=== PATIENT | female | born 1945 | race Caucasian/White ===

== ENCOUNTER 2017-08-04 07:30 | Inpatient (IN) | payer MEDICARE, MEDICAID ==
[~2017-08-04 07:30] MED LIST: Gabapentin 300 MG Cap PO ONE; Gentamicin 40 MG/ML 2 ML Vial ONE; Ketamine 500 MG/5 ML MDV IV SCH; Midazolam 1 MG/ML 2 ML SDV ONE; Povidone-Iodine 10% Soln 118.25 ML Bottle ONE; Propofol 200 MG/20 ML SDV ONE; Ropivacaine 49.25 ML, Ketorolac 30 MG, EPINEPHrine 0.5 MG, cloNIDine 80 MCG, Sodium Chl... INJECT ONE; Scopolamine 1.5 MG Transdermal Patch TOP SCH; ceFAZolin 2 GM in Sodium Chloride 0.9% 50 ML IV ONE; fentaNYL 100 MCG/2 ML SDV ONE
[2017-08-04] MEDS: Lactated Ringers 1,000 ML IV SCH ×2 (08:32→18:10)
[2017-08-04] MEDS ORDERED: Sodium Chloride 0.9% 10 ML ONE (08:59)
[2017-08-04] MEDS ORDERED: ePHEDrine 50 MG/ML SDV ONE (08:59)
[2017-08-04] MEDS: Tranexamic Acid 1,000 MG in Sodium Chloride 0.9% 50 ML IV SCH ×3 (09:00→21:31)
[2017-08-04] MEDS ORDERED: Vancomycin 1 GM SDV ONE (09:06)
[2017-08-04] MEDS ORDERED: Phenylephrine 1% 10 MG/ML SDV ONE (09:16)
[2017-08-04] MEDS ORDERED: Naloxone 0.4 MG/ML SDV IVPUSH PRN (10:26)
[2017-08-04] MEDS ORDERED: Morphine 2 MG/ML Syringe IVPUSH PRN (10:26)
[2017-08-04] MEDS ORDERED: Docusate Sodium 100 MG Cap PO PRN (10:26)
[2017-08-04] MEDS ORDERED: Aluminum Hydroxide/Magnesium Hydroxide/Simethicone Susp 30 ML Cup PO PRN (10:26)
[2017-08-04] MEDS ORDERED: Sennosides 8.6 MG Tab PO PRN (10:26)
[2017-08-04] MEDS ORDERED: Bisacodyl 5 MG Tab PO PRN (10:26)
[2017-08-04] MEDS ORDERED: Zolpidem 5 MG Tab PO PRN (10:26)
[2017-08-04] MEDS ORDERED: diphenhydrAMINE 50 MG/ML SDV IVPUSH PRN (10:26)
[2017-08-04] MEDS ORDERED: Ondansetron 4 MG/2 ML SDV IVPUSH PRN (10:26)
[2017-08-04] MEDS ORDERED: Ketorolac 30 MG/ML SDV IVPUSH SCH (10:30)
--- NOTE | 2017-08-04 10:56 | CR ---
Knee 1V or 2V Lt INDICATION: LEFT TOTAL KNEE FINDINGS: Postoperative changes left total knee arthroplasty. Negative for postoperative purposes.
[2017-08-04] MEDS ORDERED: ceFAZolin 2 GM in Premix Bag 1 BAG IV SCH (11:00)
[2017-08-04] MEDS: Acetaminophen/oxyCODONE 325-5 MG Tab PO PRN ×3 (13:06→23:58)
--- NOTE | 2017-08-04 14:22 | OR ---
DATE OF PROCEDURE: 08/04/2017 PREOPERATIVE DIAGNOSIS: Left knee primary osteoarthritis. POSTOPERATIVE DIAGNOSIS: Left knee primary osteoarthritis. PROCEDURE: Left knee total knee arthroplasty. ACUTE DIALYSIS REGISTERED NURSE: TAMIKA Kurtz. FLUID: Lactated Ringer solution. ANESTHESIA: Spinal plus conscious sedation. ESTIMATED BLOOD LOSS: 50 mL. COMPLICATIONS: None. SPECIMEN: None. DISCHARGE DISPOSITION: Stable to PACU. INDICATIONS: The patient is seen preoperatively in the clinic. She had failed nonoperative treatment. Please see my notes regarding nonoperative treatment. Preoperative imaging confirmed the above-mentioned diagnosis. Risks and benefits of the procedure were explained to the patient. Informed consent was obtained. DETAILS OF PROCEDURE: The patient was seen preoperatively by myself and the Anesthesia staff in the preoperative holding area where the operative site was marked. She was brought to the operative suite by the anesthesia staff where spinal sedation plus conscious sedation was administered. The left lower extremity had a well-padded tourniquet placed. The left lower extremity was then prepped and draped in a sterile manner. Time-out was called identifying the correct patient, correct procedure, the correct site, and antibiotics had begun with appropriate period of time. The left lower extremity was exsanguinated. Tourniquet was raised to 300 mmHg for 36 minutes and let down during cementing. A midline incision was made three fingerbreadths proximal to the patella down to the level of tibial tubercle. A medial parapatellar arthrotomy was then made. Bleeding was controlled with Bovie electrocautery as well as an Aquamantys unit. The medial tibia proximally was exposed using Bovie electrocautery. A full synovectomy was performed using Bovie electrocautery and an Aquamantys unit. The patella was everted. The knee was flexed. Two cuts were made on the patella. This was measured to be a 37. Three holes were then drilled for the trial and the trial patella was then placed. We then used sharp Hohmann to protect the soft tissues and reamed the distal femur and then used an intramedullary guide to make a 9 mm 5 degree valgus cut. We then removed that and then placed our posterior condylar guide measuring a 65. The medial collateral ligament was protected using a zero retractor and lateral collateral ligament was protected using a sharp Hohmann. I then drilled through my guide and then inserted the chamfer block and then made our anterior, posterior, chamfer cuts and removed excess bone using an osteotome. We then used the extramedullary tibial guide for our tibial cut. We used pins to hold this in place, then made our proximal tibia cut. We then removed the guide and then used a laminar emergency preparedness coordinator medially and laterally to remove the medial and lateral meniscus, anterior and posterior cruciate ligament as well as any extra soft tissue and then removed posterior osteophytes using a covered osteotome and then controlled any bleeders with the Aquamantys unit. I then anteriorized the tibia using a blunt Hohmann and used a 75 base plate and then reamed and tamped the proximal tibia and then inserted our femoral trial as well as an 18 mm tibial polyethylene trial. I believe, the knee was lax secondary to soft tissue laxity. We certainly examined the tibia and certainly did not remove more than approximately 5 mm of tibia. This provided good stability in flexion and extension. I then removed all of our components, copiously irrigated with saline and then controlled any extra bleeding with the Aquamantys unit and then I cemented our final implants in place and used an 18 poly in extension while we let the tourniquet down at 36 minutes. I then copiously irrigated with saline and removed any excess cement using neural osteotome and then applied some Betadine, let that sit, irrigated again and then I put a gram of vancomycin powder and the joint was then closed with two #5 Ethibond, a #2 Stratafix, and then #3-0 Stratafix followed by chong. I then put on a sterile dressing. The patient was transferred to hospital bed and taken to the PACU in stable condition. Angel Montes DO /[id number]
[2017-08-04] MEDS: Ketorolac 30 MG/ML SDV IVPUSH SCH ×2 (14:49→22:25)
[2017-08-04] MEDS: [UNRECOGNIZED DRUG - REMARK] TOP SCH (14:53)
[2017-08-04] MEDS: traMADol 50 MG Tab PO PRN (15:42)
[2017-08-04] MEDS ORDERED: Sodium Chloride 0.9% 500 ML IV ONE (15:52)
--- NOTE | 2017-08-04 17:16 | PCM.CONS ---
H&P History of Present Illness - General Date of Service: 08/04/17 Admit Problem/Dx: Admission Diagnosis/Problem Admission Diagnosis/Problem Osteoarthritis Source of Information: Patient, Family, Provider, RN Notes Reviewed History Limitations: Reports: Altered Mental Status (Dementia) - History of Present Illness Initial Comments - Free Text/Narative: Ms. Cotto is a 72-year-old woman who I been asked to see by Dr. Isacc Montes for assistance in postoperative medical management. Ms. Cotto underwent a total left knee arthroplasty earlier today by Dr. Montes. She has done well in the initial postoperative period, does note some pain in the knee as would be expected. She denies any nausea, vomiting, chest pain, or shortness of breath. Left Knee Pain Score (Numeric/FACES): 8 - Related Data Allergies/Adverse Reactions: Allergies Allergy/AdvReac Type Severity Reaction Status Date / Time No Known Allergies Allergy Verified 03/01/15 16:40 Home Medications: Home Meds Alendronate [Fosamax] 1 tab PO WEEKLY 07/14/17 [History] Esomeprazole Magnesium [Nexium] 20 mg PO DAILY 07/14/17 [History] Furosemide 40 mg PO DAILY 07/14/17 [History] Levothyroxine [Sythroid] 100 mcg PO DAILY 07/14/17 [History] Liothyronine Sodium 1 tab PO DAILY 07/14/17 [History] Memantine [Namenda] 1 tab PO DAILY 07/14/17 [History] Metoprolol Tartrate 1 tab PO DAILY 07/14/17 [History] Naproxen 1 tab PO BID 07/14/17 [History] buPROPion HCl [Wellbutrin SR] 150 mg PO BID 07/14/17 [History] Past Medical History HEENT History: Reports: Cataract, Hard of Hearing, Impaired Vision Cardiovascular History: Reports: Hypertension, SOB on Exertion Respiratory History: Reports: SOB 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: Musculoskeletal History: Reports: Back Pain, Chronic, Osteoporosis, Other (See Below) Other Musculoskeletal History: L knee pain Neurological History: Reports: Alzheimers Disease Psychiatric History: Reports: Dementia, Depression Endocrine/Metabolic History: Reports: Hypothyroidism, Obesity/BMI 30+, Osteoporosis Hematologic History: Reports: Anemia - Infectious Disease History Infectious Disease History: Reports: Mumps - Past Surgical History Cardiovascular Surgical History: Reports: None Respiratory Surgical History: Reports: None GI Surgical History: Reports: None Female Surgical History: Reports: None Endocrine Surgical History: Reports: None Neurological Surgical History: Reports: None Musculoskeletal Surgical History: Reports: Other (See Below) Other Musculoskeletal Surgeries/Procedures:: left foot surgery, ulner nerve left arm, nose surgery Oncologic Surgical History: Reports: None Dermatological Surgical History: Reports: None Social & Family History - Family History HEENT: Reports: Cataract Respiratory: Reports: Other (See Below) Psychiatric: Reports: Depression Oncologic: Reports: Breast, Lymphoma - Tobacco Use Smoking Status *Q: Current Some Day Smoker Years of Tobacco use: 50 Packs/Tins Daily: 0.2 Used Tobacco, but Quit: No Month Tobacco Last Used: jul Second Hand Smoke Exposure: No - Caffeine Use Caffeine Use: Reports: Coffee - Recreational Drug Use Recreational Drug Use: Yes Drug Use in Last 12 Months: Yes Recreational Drug Type: Reports: Marijuana/Hashish Recreational Drug Use Frequency: Monthly Recreational Drug Last Use: jul H&P Review of Systems - Review of Systems: Review Of Systems: Unable To Obtain General: Reports: ROS unobtainable (Dementia) Exam - Exam Exam: See Below - Vital Signs Vital Signs: Last Vital Signs Temp 97.8 F 08/04/17 14:40 Pulse 61 08/04/17 14:40 Resp 18 08/04/17 14:40 BP 88/71 L 08/04/17 14:40 Pulse Ox 92 L 08/04/17 14:40 Weight: 219 lb - Exam Quality Assessment: DVT Prophylaxis General: Alert, Cooperative, Mild Distress Neck: Supple, Trachea Midline, +2 Carotid Pulse wo Bruit Lungs: Clear to Auscultation, Normal Respiratory Effort Cardiovascular: Regular Rate, Regular Rhythm, Normal S1, Normal S2. No: Systolic Murmur, Diastolic Murmur GI/Abdominal Exam: Normal Bowel Sounds, Soft, Non-Tender, No Distention Skin: Warm, Dry, Intact Neuro Extensive - Mental Status: Alert, Memory Loss-Remote Events, Memory Loss- Recent Events. No: Memory Intact - Patient Data Lab Results Last 24 hrs: Laboratory Results - last 24 hr 08/04/17 Range/Units 08:10 Blood Type A NEGATIVE Gel Antibody Screen Negative Consult PN Assessment/Plan Procedures: Procedures BLOOD TYPING SEROLOGIC ABO (07/16/17) BLOOD TYPING SEROLOGIC RH(D) (07/16/17) CHEST X-RAY 2VW FRONTAL&LATL (03/21/15) COMPLETE CBC AUTOMATED (07/16/17) COMPREHEN METABOLIC PANEL (07/16/17) CULTURE OTHR SPECIMN AEROBIC (07/16/17) ELECTROCARDIOGRAM TRACING (07/16/17) RBC ANTIBODY SCREEN (07/16/17) ROUTINE VENIPUNCTURE (07/16/17) X-RAY EXAM KNEE 4 OR MORE (07/14/17) X-RAY EXAM OF KNEE 1 OR 2 (03/01/15) Problem List Initiated/Reviewed/Updated: Yes My Orders Last 24 Hours: My Active Orders 08/04/17 21:00 Melatonin 9 mg PO BEDTIME buPROPion [Wellbutrin SR] 150 mg PO BID 08/05/17 07:30 Levothyroxine [Synthroid] 100 mcg PO DAILY@0730 Liothyronine [Cytomel] 25 mcg PO DAILY@0730 Pantoprazole [ProTONIX] 40 mg PO ACBREAKFAST 08/05/17 09:00 Memantine [Namenda] 10 mg PO DAILY Metoprolol Tartrate [Lopressor] 25 mg PO DAILY Plan: ASSESSMENT AND RECOMMENDATIONS STATUS POST LEFT TOTAL KNEE ARTHROPLASTY-stable during the immediate postoperative period -Postoperative cares per Dr. Montes DEMENTIA -Continue outpatient medical therapy -Melatonin 9 mg by mouth daily at bedtime while hospitalized HYPERTENSION -Continue outpatient medical regimen, adjust as needed during hospitalization Requesting Provider: HUMPHREY Date Consult Requested: 08/04/17 Reason for Consult: Postoperative medical management Patient History Reviewed: Yes
[2017-08-04] MEDS: ceFAZolin 2 GM in Sodium Chloride 0.9% 50 ML IV SCH ×2 (18:24→23:09)
[2017-08-04] MEDS: Diazepam 5 MG Tab PO PRN (20:01)
[2017-08-04] MEDS: Melatonin 3 MG Tab PO SCH (22:26)
[2017-08-04] MEDS: buPROPion 150 MG Tab.SR PO SCH (22:26)
[2017-08-04] MEDS ORDERED: Lactated Ringers 1,000 ML IV SCH (23:30)
[2017-08-05] MEDS: Diazepam 5 MG Tab PO PRN (02:53)
[2017-08-05] MEDS: Lactated Ringers 1,000 ML IV SCH ×2 (02:54→19:39)
[2017-08-05] MEDS: Ketorolac 30 MG/ML SDV IVPUSH SCH (05:44)
[2017-08-05] MEDS: Acetaminophen/oxyCODONE 325-5 MG Tab PO PRN ×4 (05:48→20:12)
[2017-08-05] MEDS: Liothyronine 5 MCG Tab PO SCH (07:30)
[2017-08-05] MEDS: Levothyroxine 100 MCG Tab PO SCH (07:30)
[2017-08-05] MEDS: Pantoprazole 40 MG Tab.CR PO SCH (07:31)
[2017-08-05] MEDS: ceFAZolin 2 GM in Sodium Chloride 0.9% 50 ML IV SCH (08:10)
[2017-08-05] MEDS: traMADol 50 MG Tab PO PRN ×2 (08:15→14:20)
[2017-08-05] MEDS ORDERED: Aspirin 325 MG Tab.EC PO SCH (09:00)
[2017-08-05] MEDS: buPROPion 150 MG Tab.SR PO SCH ×2 (09:42→20:12)
[2017-08-05] MEDS: Memantine 10 MG Tab PO SCH (09:42)
[2017-08-05] MEDS: Sodium Chloride 0.9% 10 ML Syringe FLUSH SCH (09:45)
[2017-08-05] MEDS: Metoprolol Tartrate 25 MG Tab PO SCH (09:46)
[2017-08-05] MEDS: [UNRECOGNIZED DRUG - REMARK] TOP SCH (09:48)
[2017-08-05] MEDS: Aspirin 325 MG Tab.EC PO SCH (10:21)
--- NOTE | 2017-08-05 12:13 | PCM.PN ---
- General Info Date of Service: 08/05/17 Functional Status: Reports: Ambulating, Other - Review of Systems General: Reports: No Symptoms HEENT: Reports: No Symptoms Pulmonary: Reports: No Symptoms Cardiovascular: Reports: No Symptoms Gastrointestinal: Reports: No Symptoms Genitourinary: Reports: No Symptoms Musculoskeletal: Reports: Joint Pain Skin: Reports: No Symptoms Neurological: Reports: No Symptoms Psychiatric: Reports: No Symptoms - Patient Data Vitals - Most Recent: Last Vital Signs Temp 96.7 F 08/05/17 07:34 Pulse 69 08/05/17 09:46 Resp 20 08/05/17 07:34 BP 93/57 L 08/05/17 07:34 Pulse Ox 95 08/05/17 07:34 Weight - Most Recent: 219 lb I&O - Last 24 Hours: Intake & Output 08/04/17 08/05/17 08/05/17 22:59 06:59 14:59 Intake Total 1622 2347 400 Output Total 140 49 350 Balance 1482 2298 50 Lab Results Last 24 Hours: Laboratory Results - last 24 hr 08/05/17 08/05/17 Range/Units 05:49 05:49 WBC 9.7 (4.5-11.0) K/uL RBC 3.28 L (3.30-5.50) M/uL Hgb 10.2 L D (12.0-15.0) g/dL Hct 32.6 L (36.0-48.0) % MCV 99 H (80-98) fL MCH 31 (27-31) pg MCHC 31 L (32-36) % Plt Count 167 (150-400) K/uL Neut % (Auto) 68 H (36-66) % Lymph % (Auto) 18 L (24-44) % [place] % (Auto) 13 H (2-6) % Eos % (Auto) 1 L (2-4) % Baso % (Auto) 0 (0-1) % Sodium 141 (140-148) mmol/L Potassium 4.0 (3.6-5.2) mmol/L Chloride 108 (100-108) mmol/L Carbon Dioxide 29 (21-32) mmol/L Anion Gap 4.0 L (5.0-14.0) mmol/L BUN 23 H (7-18) mg/dL Creatinine 0.7 (0.6-1.0) mg/dL Est Cr Clr Drug Dosing 60.98 mL/min Estimated GFR (MDRD) > 60 (>60) Glucose 134 H (74-106) mg/dL Calcium 8.1 L (8.5-10.1) mg/dL Total Bilirubin 0.1 L (0.2-1.0) mg/dL AST 18 (15-37) U/L ALT 23 (12-78) U/L Alkaline Phosphatase 59 (46-116) U/L Total Protein 5.7 L (6.4-8.2) g/dL Albumin 2.6 L (3.4-5.0) g/dL Globulin 3.1 (2.3-3.5) g/dL Albumin/Globulin Ratio 0.8 L (1.2-2.2) Med Orders - Current: Current Medications Al Hydroxide/Mg Hydroxide (Mag-Al Plus) 30 ml PO Q4H PRN PRN Reason: Constipation Aspirin (Ecotrin) 325 mg PO DAILY [facility] Last Admin: 08/05/17 10:21 Dose: 325 mg Bisacodyl (Dulcolax) 10 mg PO DAILY PRN PRN Reason: Constipation Bupropion HCl (Wellbutrin Sr) 150 mg PO BID [facility] Last Admin: 08/05/17 09:42 Dose: 150 mg Diazepam (Valium.) 5 mg PO Q6H PRN PRN Reason: Spasms Last Admin: 08/05/17 02:53 Dose: 5 mg Diphenhydramine HCl (Benadryl) 25 mg IVPUSH Q4H PRN PRN Reason: Itching Docusate Sodium (Colace) 100 mg PO BID PRN PRN Reason: Constipation Lactated Ringer's (Ringers, Lactated) 1,000 mls @ 125 mls/hr IV ASDIRECTED [facility] Last Admin: 08/05/17 02:54 Dose: 125 mls/hr Levothyroxine Sodium (Synthroid) 100 mcg PO DAILY@729 [facility] Last Admin: 08/05/17 07:30 Dose: 100 mcg Liothyronine Sodium (Cytomel) 25 mcg PO DAILY@729 [facility] Last Admin: 08/05/17 07:30 Dose: 25 mcg Magnesium Hydroxide (Milk Of Magnesia) 30 ml PO BID PRN PRN Reason: Constipation Melatonin (Melatonin) 9 mg PO BEDTIME [facility] Last Admin: 08/04/17 22:26 Dose: 9 mg Memantine (Namenda) 10 mg PO DAILY [facility] Last Admin: 08/05/17 09:42 Dose: 10 mg Metoprolol Tartrate (Lopressor) 25 mg PO DAILY [facility] Last Admin: 08/05/17 09:46 Dose: Not Given Morphine Sulfate (Morphine) 2 mg IVPUSH Q2H PRN PRN Reason: Pain Last Admin: 08/05/17 00:43 Dose: 2 mg Naloxone HCl (Narcan) 0.1 mg IVPUSH ONETIME PRN PRN Reason: Oversedation Scopolamine Patch (Chek) 1 each TOP DAILY [facility] Last Admin: 08/05/17 09:48 Dose: Not Given Ondansetron HCl (Zofran) 8 mg IVPUSH Q4H PRN PRN Reason: Nausea/Vomiting Oxycodone/Acetaminophen (Percocet 325-5 Mg) 2 tab PO Q4H PRN PRN Reason: Pain Last Admin: 08/05/17 11:23 Dose: 2 tab Pantoprazole Sodium (Protonix) 40 mg PO ACBREAKFAST [facility] Last Admin: 08/05/17 07:31 Dose: 40 mg Scopolamine (Transderm-Scop) 1.5 mg TOP Q72H [facility] Stop: 08/07/17 06:00 Last Admin: 08/04/17 08:19 Dose: 1.5 mg Senna (Senna) 8.6 mg PO BID PRN PRN Reason: Constipation Sodium Chloride (Saline Flush) 10 ml FLUSH DAILY [facility] Last Admin: 08/05/17 09:45 Dose: Not Given Tramadol HCl (Ultram) 100 mg PO Q6H PRN PRN Reason: Pain Last Admin: 08/05/17 08:15 Dose: 100 mg Zolpidem Tartrate (Ambien) 5 mg PO BEDTIME PRN PRN Reason: Sleep Discontinued Medications Ropivacaine 49.25 ml/Ketorolac Tromethamine 30 mg/Epinephrine HCl 0.5 mg/ Clonidine HCl 80 mcg/ Sodium Chloride 48.45 ml 0 ml INJECT ONETIME ONE Stop: 08/04/17 07:31 Last Admin: 08/04/17 10:03 Dose: 100 ml Ephedrine Sulfate (Ephedrine Sulfate) Confirm Administered Dose 50 mg .ROUTE .STK-MED ONE Stop: 08/04/17 09:00 Fentanyl (Sublimaze) Confirm Administered Dose 100 mcg .ROUTE .STK-MED ONE Stop: 08/04/17 07:21 Gabapentin (Neurontin) 300 mg PO ONETIME ONE Stop: 08/04/17 06:46 Last Admin: 08/04/17 08:16 Dose: 300 mg Gentamicin Sulfate (Gentamicin) Confirm Administered Dose 240 mg .ROUTE .STK- MED ONE Stop: 08/04/17 07:13 Last Admin: 08/04/17 09:07 Dose: 240 mg Cefazolin Sodium 2 gm/ Sodium (Chloride) 50 mls @ 100 mls/hr IV ONETIME ONE Stop: 08/04/17 07:59 Last Admin: 08/04/17 08:35 Dose: 100 mls/hr Lactated Ringer's (Ringers, Lactated) 1,000 mls @ 0 mls/hr IV ASDIRECTED [facility] PRN Reason: KVO Last Admin: 08/04/17 18:10 Dose: 30 mls/hr Tranexamic Acid 1,000 mg/ (Sodium Chloride) 60 mls @ 240 mls/hr IV Q3H [facility] Stop: 08/04/17 10:44 Last Admin: 08/04/17 21:31 Dose: Not Given Sodium Chloride (Normal Saline) Confirm Administered Dose 10 mls @ as directed .ROUTE .STK-MED ONE Stop: 08/04/17 09:00 Cefazolin Sodium 2 gm/ Sodium (Chloride) 50 mls @ 100 mls/hr IV Q8H [facility] Stop: 08/05/17 08:29 Last Admin: 08/05/17 08:10 Dose: 100 mls/hr Sodium Chloride (Normal Saline) 500 mls @ 500 mls/hr IV .BOLUS ONE Stop: 08/04/17 16:51 Last Admin: 08/04/17 16:06 Dose: 500 mls/hr Lactated Ringer's (Ringers, Lactated) 1,000 mls @ 250 mls/hr IV ASDIRECTED [facility] Stop: 08/05/17 03:30 Last Admin: 08/04/17 23:53 Dose: 250 mls/hr Ketorolac Tromethamine (Toradol) 15 mg IVPUSH Q8H [facility] Stop: 08/05/17 05:01 Last Admin: 08/05/17 05:44 Dose: 15 mg Midazolam HCl (Versed 1 Mg/Ml) Confirm Administered Dose 2 mg .ROUTE .STK-MED ONE Stop: 08/04/17 07:21 Phenylephrine HCl (Ray-Synephrine) Confirm Administered Dose 10 mg .ROUTE .STK- MED ONE Stop: 08/04/17 09:17 Povidone Iodine (Betadine 10% Soln) Confirm Administered Dose 1 ml .ROUTE .STK- MED ONE Stop: 08/04/17 07:14 Last Admin: 08/04/17 09:45 Dose: 10 ml Propofol (Diprivan 20 Ml) Confirm Administered Dose 200 mg .ROUTE .STK-MED ONE Stop: 08/04/17 07:21 Vancomycin HCl (Vancomycin) Confirm Administered Dose 1 gm .ROUTE .STK-MED ONE Stop: 08/04/17 09:07 Last Admin: 08/04/17 09:30 Dose: 1 gm - Exam General: Alert, Oriented HEENT: Pupils Reactive Extremities: Joint Swelling, Leg Pain, Limited Range of Motion Peripheral Pulses: 2+: Dorsalis Pedis (L) Skin: Warm, Dry, Intact Wound/Incisions: Healing Well, Drainage Neurological: No New Focal Deficit Psy/Mental Status: Alert, Normal Affect Physical Findings Comments:: ROM 7-96. pain moderately controlled but getting pain medication appropriately. will most likely d/c to snf - Problem List & Annotations (1) Primary osteoarthritis of left knee SNOMED Code(s): 566333216, 321773845 Code(s): M17.12 - UNILATERAL PRIMARY OSTEOARTHRITIS, LEFT KNEE Status: Acute Current Visit: Yes (2) Status post total left knee replacement SNOMED Code(s): 6005969239063 Code(s): Z96.652 - PRESENCE OF LEFT ARTIFICIAL KNEE JOINT Status: Acute Current Visit: Yes - Problem List Review Problem List Initiated/Reviewed/Updated: Yes - Plan Plan:: pt/ot, pain control, dvt prophylaxis
--- NOTE | 2017-08-05 17:59 | PCM.CONSN ---
- General Info Date of Service: 08/05/17 Functional Status: Reports: Pain Controlled, Tolerating Diet - Review of Systems General: Denies: Fever, Chills Pulmonary: Reports: No Symptoms Cardiovascular: Reports: No Symptoms Gastrointestinal: Reports: No Symptoms Musculoskeletal: Reports: Joint Pain Systems Review Comment:: This patient has done well since surgery yesterday, vitals have been stable and she has remained afebrile. Pain control is been adequate, thus far she has done well with ambulation and transfers. - Patient Data Vitals - Most Recent: Last Vital Signs Temp 99.4 F 08/05/17 15:28 Pulse 81 08/05/17 15:28 Resp 16 08/05/17 15:28 BP 103/56 L 08/05/17 15:28 Pulse Ox 93 L 08/05/17 15:28 Weight - Most Recent: 219 lb I&O - Last 24 Hours: Intake & Output 08/05/17 08/05/17 08/05/17 06:59 14:59 22:59 Intake Total 2347 400 Output Total 49 350 400 Balance 2298 50 -400 Lab Results Last 24 Hours: Laboratory Results - last 24 hr 08/05/17 08/05/17 Range/Units 05:49 05:49 WBC 9.7 (4.5-11.0) K/uL RBC 3.28 L (3.30-5.50) M/uL Hgb 10.2 L D (12.0-15.0) g/dL Hct 32.6 L (36.0-48.0) % MCV 99 H (80-98) fL MCH 31 (27-31) pg MCHC 31 L (32-36) % Plt Count 167 (150-400) K/uL Neut % (Auto) 68 H (36-66) % Lymph % (Auto) 18 L (24-44) % [place] % (Auto) 13 H (2-6) % Eos % (Auto) 1 L (2-4) % Baso % (Auto) 0 (0-1) % Sodium 141 (140-148) mmol/L Potassium 4.0 (3.6-5.2) mmol/L Chloride 108 (100-108) mmol/L Carbon Dioxide 29 (21-32) mmol/L Anion Gap 4.0 L (5.0-14.0) mmol/L BUN 23 H (7-18) mg/dL Creatinine 0.7 (0.6-1.0) mg/dL Est Cr Clr Drug Dosing 60.98 mL/min Estimated GFR (MDRD) > 60 (>60) Glucose 134 H (74-106) mg/dL Calcium 8.1 L (8.5-10.1) mg/dL Total Bilirubin 0.1 L (0.2-1.0) mg/dL AST 18 (15-37) U/L ALT 23 (12-78) U/L Alkaline Phosphatase 59 (46-116) U/L Total Protein 5.7 L (6.4-8.2) g/dL Albumin 2.6 L (3.4-5.0) g/dL Globulin 3.1 (2.3-3.5) g/dL Albumin/Globulin Ratio 0.8 L (1.2-2.2) Med Orders - Current: Current Medications Al Hydroxide/Mg Hydroxide (Mag-Al Plus) 30 ml PO Q4H PRN PRN Reason: Constipation Aspirin (Ecotrin) 325 mg PO DAILY [facility] Last Admin: 08/05/17 10:21 Dose: 325 mg Bisacodyl (Dulcolax) 10 mg PO DAILY PRN PRN Reason: Constipation Bupropion HCl (Wellbutrin Sr) 150 mg PO BID [facility] Last Admin: 08/05/17 09:42 Dose: 150 mg Diazepam (Valium.) 5 mg PO Q6H PRN PRN Reason: Spasms Last Admin: 08/05/17 02:53 Dose: 5 mg Diphenhydramine HCl (Benadryl) 25 mg IVPUSH Q4H PRN PRN Reason: Itching Docusate Sodium (Colace) 100 mg PO BID PRN PRN Reason: Constipation Lactated Ringer's (Ringers, Lactated) 1,000 mls @ 125 mls/hr IV ASDIRECTED [facility] Last Admin: 08/05/17 02:54 Dose: 125 mls/hr Levothyroxine Sodium (Synthroid) 100 mcg PO DAILY@729 [facility] Last Admin: 08/05/17 07:30 Dose: 100 mcg Liothyronine Sodium (Cytomel) 25 mcg PO DAILY@30 [facility] Last Admin: 08/05/17 07:30 Dose: 25 mcg Magnesium Hydroxide (Milk Of Magnesia) 30 ml PO BID PRN PRN Reason: Constipation Melatonin (Melatonin) 9 mg PO BEDTIME [facility] Last Admin: 08/04/17 22:26 Dose: 9 mg Memantine (Namenda) 10 mg PO DAILY [facility] Last Admin: 08/05/17 09:42 Dose: 10 mg Metoprolol Tartrate (Lopressor) 25 mg PO DAILY [facility] Last Admin: 08/05/17 09:46 Dose: Not Given Morphine Sulfate (Morphine) 2 mg IVPUSH Q2H PRN PRN Reason: Pain Last Admin: 08/05/17 00:43 Dose: 2 mg Naloxone HCl (Narcan) 0.1 mg IVPUSH ONETIME PRN PRN Reason: Oversedation Scopolamine Patch (Chek) 1 each TOP DAILY [facility] Last Admin: 08/05/17 09:48 Dose: Not Given Ondansetron HCl (Zofran) 8 mg IVPUSH Q4H PRN PRN Reason: Nausea/Vomiting Oxycodone/Acetaminophen (Percocet 325-5 Mg) 2 tab PO Q4H PRN PRN Reason: Pain Last Admin: 08/05/17 15:59 Dose: 2 tab Pantoprazole Sodium (Protonix) 40 mg PO ACBREAKFAST [facility] Last Admin: 08/05/17 07:31 Dose: 40 mg Scopolamine (Transderm-Scop) 1.5 mg TOP Q72H [facility] Stop: 08/07/17 06:00 Last Admin: 08/04/17 08:19 Dose: 1.5 mg Senna (Senna) 8.6 mg PO BID PRN PRN Reason: Constipation Sodium Chloride (Saline Flush) 10 ml FLUSH DAILY [facility] Last Admin: 08/05/17 09:45 Dose: Not Given Tramadol HCl (Ultram) 100 mg PO Q6H PRN PRN Reason: Pain Last Admin: 08/05/17 14:20 Dose: 100 mg Zolpidem Tartrate (Ambien) 5 mg PO BEDTIME PRN PRN Reason: Sleep Discontinued Medications Ropivacaine 49.25 ml/Ketorolac Tromethamine 30 mg/Epinephrine HCl 0.5 mg/ Clonidine HCl 80 mcg/ Sodium Chloride 48.45 ml 0 ml INJECT ONETIME ONE Stop: 08/04/17 07:31 Last Admin: 08/04/17 10:03 Dose: 100 ml Ephedrine Sulfate (Ephedrine Sulfate) Confirm Administered Dose 50 mg .ROUTE .STK-MED ONE Stop: 08/04/17 09:00 Fentanyl (Sublimaze) Confirm Administered Dose 100 mcg .ROUTE .STK-MED ONE Stop: 08/04/17 07:21 Gabapentin (Neurontin) 300 mg PO ONETIME ONE Stop: 08/04/17 06:46 Last Admin: 08/04/17 08:16 Dose: 300 mg Gentamicin Sulfate (Gentamicin) Confirm Administered Dose 240 mg .ROUTE .STK- MED ONE Stop: 08/04/17 07:13 Last Admin: 08/04/17 09:07 Dose: 240 mg Cefazolin Sodium 2 gm/ Sodium (Chloride) 50 mls @ 100 mls/hr IV ONETIME ONE Stop: 08/04/17 07:59 Last Admin: 08/04/17 08:35 Dose: 100 mls/hr Lactated Ringer's (Ringers, Lactated) 1,000 mls @ 0 mls/hr IV ASDIRECTED [facility] PRN Reason: KVO Last Admin: 08/04/17 18:10 Dose: 30 mls/hr Tranexamic Acid 1,000 mg/ (Sodium Chloride) 60 mls @ 240 mls/hr IV Q3H [facility] Stop: 08/04/17 10:44 Last Admin: 08/04/17 21:31 Dose: Not Given Sodium Chloride (Normal Saline) Confirm Administered Dose 10 mls @ as directed .ROUTE .STK-MED ONE Stop: 08/04/17 09:00 Cefazolin Sodium 2 gm/ Sodium (Chloride) 50 mls @ 100 mls/hr IV Q8H [facility] Stop: 08/05/17 08:29 Last Admin: 08/05/17 08:10 Dose: 100 mls/hr Sodium Chloride (Normal Saline) 500 mls @ 500 mls/hr IV .BOLUS ONE Stop: 08/04/17 16:51 Last Admin: 08/04/17 16:06 Dose: 500 mls/hr Lactated Ringer's (Ringers, Lactated) 1,000 mls @ 250 mls/hr IV ASDIRECTED [facility] Stop: 08/05/17 03:30 Last Admin: 08/04/17 23:53 Dose: 250 mls/hr Ketorolac Tromethamine (Toradol) 15 mg IVPUSH Q8H [facility] Stop: 08/05/17 05:01 Last Admin: 08/05/17 05:44 Dose: 15 mg Midazolam HCl (Versed 1 Mg/Ml) Confirm Administered Dose 2 mg .ROUTE .STK-MED ONE Stop: 08/04/17 07:21 Phenylephrine HCl (Ray-Synephrine) Confirm Administered Dose 10 mg .ROUTE .STK- MED ONE Stop: 08/04/17 09:17 Povidone Iodine (Betadine 10% Soln) Confirm Administered Dose 1 ml .ROUTE .STK- MED ONE Stop: 08/04/17 07:14 Last Admin: 08/04/17 09:45 Dose: 10 ml Propofol (Diprivan 20 Ml) Confirm Administered Dose 200 mg .ROUTE .STK-MED ONE Stop: 08/04/17 07:21 Vancomycin HCl (Vancomycin) Confirm Administered Dose 1 gm .ROUTE .STK-MED ONE Stop: 08/04/17 09:07 Last Admin: 08/04/17 09:30 Dose: 1 gm - Exam General: Alert, Oriented, Cooperative, Mild Distress Lungs: Clear to Auscultation, Normal Respiratory Effort Cardiovascular: Regular Rate, Regular Rhythm, No Murmurs GI/Abdominal Exam: Normal Bowel Sounds, Soft, Non-Tender, No Organomegaly, No Distention Consult PN Assessment/Plan Procedures: Procedures BLOOD TYPING SEROLOGIC ABO (07/16/17) BLOOD TYPING SEROLOGIC RH(D) (07/16/17) CHEST X-RAY 2VW FRONTAL&LATL (03/21/15) COMPLETE CBC AUTOMATED (07/16/17) COMPREHEN METABOLIC PANEL (07/16/17) CULTURE OTHR SPECIMN AEROBIC (07/16/17) ELECTROCARDIOGRAM TRACING (07/16/17) RBC ANTIBODY SCREEN (07/16/17) ROUTINE VENIPUNCTURE (07/16/17) X-RAY EXAM KNEE 4 OR MORE (07/14/17) X-RAY EXAM OF KNEE 1 OR 2 (03/01/15) Problem List Initiated/Reviewed/Updated: Yes My Orders Last 24 Hours: My Active Orders 08/04/17 19:45 Lactated Ringers [Ringers, Lactated] 1,000 ml IV ASDIRECTED 08/04/17 21:00 Melatonin 9 mg PO BEDTIME buPROPion [Wellbutrin SR] 150 mg PO BID 08/05/17 07:30 Levothyroxine [Synthroid] 100 mcg PO DAILY@30 Liothyronine [Cytomel] 25 mcg PO DAILY@729 Pantoprazole [ProTONIX] 40 mg PO ACBREAKFAST 08/05/17 09:00 Memantine [Namenda] 10 mg PO DAILY Metoprolol Tartrate [Lopressor] 25 mg PO DAILY Plan: ASSESSMENT AND RECOMMENDATIONS STATUS POST LEFT TOTAL KNEE ARTHROPLASTY-stable since surgery yesterday -Postoperative cares per Dr. Montes DEMENTIA -Continue outpatient medical therapy -Melatonin 9 mg by mouth daily at bedtime while hospitalized HYPERTENSION -Continue outpatient medical regimen, adjust as needed during hospitalization
[2017-08-05] MEDS: Melatonin 3 MG Tab PO SCH (20:12)
[2017-08-05] MEDS ORDERED: Lactated Ringers 500 ML IV ONE (21:15)
[2017-08-05] MEDS ORDERED: Gabapentin 100 MG Cap PO SCH (21:15)
[2017-08-05] MEDS ORDERED: Lactated Ringers 1,000 ML IV SCH (23:30)
[2017-08-06] MEDS: traMADol 50 MG Tab PO PRN ×3 (00:02→13:53)
[2017-08-06] MEDS: Diazepam 5 MG Tab PO PRN ×3 (00:02→13:52)
[2017-08-06] MEDS: Lactated Ringers 1,000 ML IV SCH (03:39)
[2017-08-06] MEDS: Acetaminophen/oxyCODONE 325-5 MG Tab PO PRN ×4 (03:41→20:04)
[2017-08-06] MEDS: Pantoprazole 40 MG Tab.CR PO SCH (07:36)
[2017-08-06] MEDS: Levothyroxine 100 MCG Tab PO SCH (07:36)
[2017-08-06] MEDS: Liothyronine 5 MCG Tab PO SCH (07:36)
[2017-08-06] MEDS: Magnesium Hydroxide 400 MG/5 ML Susp 30 ML Cup PO PRN ×2 (07:52→20:03)
[2017-08-06] MEDS: Aspirin 325 MG Tab.EC PO SCH (08:12)
[2017-08-06] MEDS: buPROPion 150 MG Tab.SR PO SCH ×2 (08:12→20:03)
[2017-08-06] MEDS: Metoprolol Tartrate 25 MG Tab PO SCH (08:12)
[2017-08-06] MEDS: Memantine 10 MG Tab PO SCH (08:13)
[2017-08-06] MEDS: [UNRECOGNIZED DRUG - REMARK] TOP SCH (08:13)
[2017-08-06] MEDS: Sodium Chloride 0.9% 10 ML Syringe FLUSH SCH (08:14)
--- NOTE | 2017-08-06 09:09 | PCM.PN ---
- General Info Date of Service: 08/06/17 Functional Status: Reports: Pain Controlled, Tolerating Diet, Ambulating, Urinating - Patient Data Vitals - Most Recent: Last Vital Signs Temp 37.2 C 08/06/17 07:43 Pulse 88 08/06/17 08:12 Resp 18 08/06/17 07:43 BP 129/74 08/06/17 08:12 Pulse Ox 95 08/06/17 07:43 Weight - Most Recent: 219 lb I&O - Last 24 Hours: Intake & Output 08/05/17 08/06/17 08/06/17 22:59 06:59 14:59 Intake Total 2220 1548 438 Output Total 1075 1350 Balance 1145 198 438 Lab Results Last 24 Hours: Laboratory Results - last 24 hr 08/06/17 08/06/17 Range/Units 05:20 05:20 WBC 9.5 (4.5-11.0) K/uL RBC 3.08 L (3.30-5.50) M/uL Hgb 9.7 L (12.0-15.0) g/dL Hct 30.2 L (36.0-48.0) % MCV 98 (80-98) fL MCH 32 H (27-31) pg MCHC 32 (32-36) % Plt Count 157 (150-400) K/uL Neut % (Auto) 80 H (36-66) % Lymph % (Auto) 7 L (24-44) % [place] % (Auto) 13 H (2-6) % Eos % (Auto) 0 L (2-4) % Baso % (Auto) 0 (0-1) % Sodium 138 L (140-148) mmol/L Potassium 4.0 (3.6-5.2) mmol/L Chloride 104 (100-108) mmol/L Carbon Dioxide 28 (21-32) mmol/L Anion Gap 10.0 (5.0-14.0) mmol/L BUN 13 (7-18) mg/dL Creatinine 0.6 (0.6-1.0) mg/dL Est Cr Clr Drug Dosing 71.14 mL/min Estimated GFR (MDRD) > 60 (>60) Glucose 146 H (74-106) mg/dL Calcium 8.1 L (8.5-10.1) mg/dL Total Bilirubin 0.4 D (0.2-1.0) mg/dL AST 19 (15-37) U/L ALT 16 (12-78) U/L Alkaline Phosphatase 54 (46-116) U/L Total Protein 6.0 L (6.4-8.2) g/dL Albumin 2.4 L (3.4-5.0) g/dL Globulin 3.6 H (2.3-3.5) g/dL Albumin/Globulin Ratio 0.7 L (1.2-2.2) Med Orders - Current: Current Medications Al Hydroxide/Mg Hydroxide (Mag-Al Plus) 30 ml PO Q4H PRN PRN Reason: Constipation Aspirin (Ecotrin) 325 mg PO DAILY [facility] Last Admin: 08/06/17 08:12 Dose: 325 mg Bisacodyl (Dulcolax) 10 mg PO DAILY PRN PRN Reason: Constipation Bupropion HCl (Wellbutrin Sr) 150 mg PO BID [facility] Last Admin: 08/06/17 08:12 Dose: 150 mg Diazepam (Valium.) 5 mg PO Q6H PRN PRN Reason: Spasms Last Admin: 08/06/17 07:52 Dose: 5 mg Diphenhydramine HCl (Benadryl) 25 mg IVPUSH Q4H PRN PRN Reason: Itching Docusate Sodium (Colace) 100 mg PO BID PRN PRN Reason: Constipation Lactated Ringer's (Ringers, Lactated) 1,000 mls @ 125 mls/hr IV ASDIRECTED [facility] Last Admin: 08/06/17 03:39 Dose: 125 mls/hr Levothyroxine Sodium (Synthroid) 100 mcg PO DAILY@30 [facility] Last Admin: 08/06/17 07:36 Dose: 100 mcg Liothyronine Sodium (Cytomel) 25 mcg PO DAILY@0730 [facility] Last Admin: 08/06/17 07:36 Dose: 25 mcg Magnesium Hydroxide (Milk Of Magnesia) 30 ml PO BID PRN PRN Reason: Constipation Last Admin: 08/06/17 07:52 Dose: 30 ml Melatonin (Melatonin) 9 mg PO BEDTIME [facility] Last Admin: 08/05/17 20:12 Dose: 9 mg Memantine (Namenda) 10 mg PO DAILY [facility] Last Admin: 08/06/17 08:13 Dose: 10 mg Metoprolol Tartrate (Lopressor) 25 mg PO DAILY [facility] Last Admin: 08/06/17 08:12 Dose: 25 mg Morphine Sulfate (Morphine) 2 mg IVPUSH Q2H PRN PRN Reason: Pain Last Admin: 08/05/17 00:43 Dose: 2 mg Naloxone HCl (Narcan) 0.1 mg IVPUSH ONETIME PRN PRN Reason: Oversedation Scopolamine Patch (Chek) 1 each TOP DAILY [facility] Last Admin: 08/06/17 08:13 Dose: Not Given Ondansetron HCl (Zofran) 8 mg IVPUSH Q4H PRN PRN Reason: Nausea/Vomiting Oxycodone/Acetaminophen (Percocet 325-5 Mg) 2 tab PO Q4H PRN PRN Reason: Pain Last Admin: 08/06/17 03:41 Dose: 2 tab Pantoprazole Sodium (Protonix) 40 mg PO ACBREAKFAST [facility] Last Admin: 08/06/17 07:36 Dose: 40 mg Scopolamine (Transderm-Scop) 1.5 mg TOP Q72H [facility] Stop: 08/07/17 06:00 Last Admin: 08/04/17 08:19 Dose: 1.5 mg Senna (Senna) 8.6 mg PO BID PRN PRN Reason: Constipation Sodium Chloride (Saline Flush) 10 ml FLUSH DAILY [facility] Last Admin: 08/06/17 08:14 Dose: Not Given Tramadol HCl (Ultram) 100 mg PO Q6H PRN PRN Reason: Pain Last Admin: 08/06/17 07:51 Dose: 100 mg Zolpidem Tartrate (Ambien) 5 mg PO BEDTIME PRN PRN Reason: Sleep Last Admin: 08/06/17 00:02 Dose: 5 mg Discontinued Medications Ropivacaine 49.25 ml/Ketorolac Tromethamine 30 mg/Epinephrine HCl 0.5 mg/ Clonidine HCl 80 mcg/ Sodium Chloride 48.45 ml 0 ml INJECT ONETIME ONE Stop: 08/04/17 07:31 Last Admin: 08/04/17 10:03 Dose: 100 ml Ephedrine Sulfate (Ephedrine Sulfate) Confirm Administered Dose 50 mg .ROUTE .STK-MED ONE Stop: 08/04/17 09:00 Fentanyl (Sublimaze) Confirm Administered Dose 100 mcg .ROUTE .STK-MED ONE Stop: 08/04/17 07:21 Gabapentin (Neurontin) 300 mg PO ONETIME ONE Stop: 08/04/17 06:46 Last Admin: 08/04/17 08:16 Dose: 300 mg Gentamicin Sulfate (Gentamicin) Confirm Administered Dose 240 mg .ROUTE .STK- MED ONE Stop: 08/04/17 07:13 Last Admin: 08/04/17 09:07 Dose: 240 mg Cefazolin Sodium 2 gm/ Sodium (Chloride) 50 mls @ 100 mls/hr IV ONETIME ONE Stop: 08/04/17 07:59 Last Admin: 08/04/17 08:35 Dose: 100 mls/hr Lactated Ringer's (Ringers, Lactated) 1,000 mls @ 0 mls/hr IV ASDIRECTED [facility] PRN Reason: KVO Last Admin: 08/04/17 18:10 Dose: 30 mls/hr Tranexamic Acid 1,000 mg/ (Sodium Chloride) 60 mls @ 240 mls/hr IV Q3H [facility] Stop: 08/04/17 10:44 Last Admin: 08/04/17 21:31 Dose: Not Given Sodium Chloride (Normal Saline) Confirm Administered Dose 10 mls @ as directed .ROUTE .STK-MED ONE Stop: 08/04/17 09:00 Cefazolin Sodium 2 gm/ Sodium (Chloride) 50 mls @ 100 mls/hr IV Q8H [facility] Stop: 08/05/17 08:29 Last Admin: 08/05/17 08:10 Dose: 100 mls/hr Sodium Chloride (Normal Saline) 500 mls @ 500 mls/hr IV .BOLUS ONE Stop: 08/04/17 16:51 Last Admin: 08/04/17 16:06 Dose: 500 mls/hr Lactated Ringer's (Ringers, Lactated) 1,000 mls @ 250 mls/hr IV ASDIRECTED [facility] Stop: 08/05/17 03:30 Last Admin: 08/04/17 23:53 Dose: 250 mls/hr Ketorolac Tromethamine (Toradol) 15 mg IVPUSH Q8H [facility] Stop: 08/05/17 05:01 Last Admin: 08/05/17 05:44 Dose: 15 mg Midazolam HCl (Versed 1 Mg/Ml) Confirm Administered Dose 2 mg .ROUTE .STK-MED ONE Stop: 08/04/17 07:21 Phenylephrine HCl (Ray-Synephrine) Confirm Administered Dose 10 mg .ROUTE .STK- MED ONE Stop: 08/04/17 09:17 Povidone Iodine (Betadine 10% Soln) Confirm Administered Dose 1 ml .ROUTE .STK- MED ONE Stop: 08/04/17 07:14 Last Admin: 08/04/17 09:45 Dose: 10 ml Propofol (Diprivan 20 Ml) Confirm Administered Dose 200 mg .ROUTE .STK-MED ONE Stop: 08/04/17 07:21 Vancomycin HCl (Vancomycin) Confirm Administered Dose 1 gm .ROUTE .STK-MED ONE Stop: 08/04/17 09:07 Last Admin: 08/04/17 09:30 Dose: 1 gm - Exam General: Alert, Oriented Back Exam: Normal Inspection, Full Range of Motion Extremities: Normal Inspection, Normal Range of Motion, Normal Capillary Refill , Pedal Edema, Joint Swelling, Limited Range of Motion Peripheral Pulses: 2+: Dorsalis Pedis (L), Dorsalis Pedis (R) Skin: Warm, Dry, Intact Wound/Incisions: Healing Well, Dressing Dry and Intact Neurological: No New Focal Deficit, Strength Equal Bilateral, Reflexes Equal Bilateral Psy/Mental Status: Alert, Normal Affect - Problem List Review Problem List Initiated/Reviewed/Updated: Yes - My Orders Last 24 Hours: My Active Orders 08/05/17 09:00 Aspirin [Ecotrin] 325 mg PO DAILY Sodium Chloride 0.9% [Saline Flush] 10 ml FLUSH DAILY 08/07/17 05:15 CBC WITH AUTO DIFF [HEME] DAILY COMPREHENSIVE METABOLIC PN,CMP [CHEM] DAILY 08/08/17 05:15 CBC WITH AUTO DIFF [HEME] DAILY COMPREHENSIVE METABOLIC PN,CMP [CHEM] DAILY - Plan Plan:: Patient is doing very well today. She will continue to work with PT OT on strengthening. I like her to walk at least 4 times a day. We will DC her IV and her Cantu today and encourage ambulation. I would like her to continue with oral pain medication for pain management. Patient will plan on going to a halfway tomorrow.
--- NOTE | 2017-08-06 12:21 | PCM.CONSN ---
- General Info Date of Service: 08/06/17 Functional Status: Reports: Pain Controlled, Tolerating Diet - Review of Systems General: Reports: Weakness. Denies: Fever, Chills Pulmonary: Reports: No Symptoms Cardiovascular: Reports: No Symptoms Gastrointestinal: Reports: No Symptoms Psychiatric: Reports: Confusion Systems Review Comment:: This patient has been stable since yesterday, vital signs are good and she has remained afebrile. Having difficulty with transfers and ambulation, current plan is to proceed with [facility] for restorative physical therapy and occupational therapy. - Patient Data Vitals - Most Recent: Last Vital Signs Temp 99.5 F 08/06/17 10:51 Pulse 77 08/06/17 10:51 Resp 16 08/06/17 10:51 BP 135/81 08/06/17 10:51 Pulse Ox 93 L 08/06/17 10:51 Weight - Most Recent: 219 lb I&O - Last 24 Hours: Intake & Output 08/05/17 08/06/17 08/06/17 22:59 06:59 14:59 Intake Total 2220 1548 438 Output Total 1075 1350 Balance 1145 198 438 Lab Results Last 24 Hours: Laboratory Results - last 24 hr 08/06/17 08/06/17 Range/Units 05:20 05:20 WBC 9.5 (4.5-11.0) K/uL RBC 3.08 L (3.30-5.50) M/uL Hgb 9.7 L (12.0-15.0) g/dL Hct 30.2 L (36.0-48.0) % MCV 98 (80-98) fL MCH 32 H (27-31) pg MCHC 32 (32-36) % Plt Count 157 (150-400) K/uL Neut % (Auto) 80 H (36-66) % Lymph % (Auto) 7 L (24-44) % [place] % (Auto) 13 H (2-6) % Eos % (Auto) 0 L (2-4) % Baso % (Auto) 0 (0-1) % Sodium 138 L (140-148) mmol/L Potassium 4.0 (3.6-5.2) mmol/L Chloride 104 (100-108) mmol/L Carbon Dioxide 28 (21-32) mmol/L Anion Gap 10.0 (5.0-14.0) mmol/L BUN 13 (7-18) mg/dL Creatinine 0.6 (0.6-1.0) mg/dL Est Cr Clr Drug Dosing 71.14 mL/min Estimated GFR (MDRD) > 60 (>60) Glucose 146 H (74-106) mg/dL Calcium 8.1 L (8.5-10.1) mg/dL Total Bilirubin 0.4 D (0.2-1.0) mg/dL AST 19 (15-37) U/L ALT 16 (12-78) U/L Alkaline Phosphatase 54 (46-116) U/L Total Protein 6.0 L (6.4-8.2) g/dL Albumin 2.4 L (3.4-5.0) g/dL Globulin 3.6 H (2.3-3.5) g/dL Albumin/Globulin Ratio 0.7 L (1.2-2.2) Med Orders - Current: Current Medications Al Hydroxide/Mg Hydroxide (Mag-Al Plus) 30 ml PO Q4H PRN PRN Reason: Constipation Aspirin (Ecotrin) 325 mg PO DAILY [facility] Last Admin: 08/06/17 08:12 Dose: 325 mg Bisacodyl (Dulcolax) 10 mg PO DAILY PRN PRN Reason: Constipation Bupropion HCl (Wellbutrin Sr) 150 mg PO BID [facility] Last Admin: 08/06/17 08:12 Dose: 150 mg Diazepam (Valium.) 5 mg PO Q6H PRN PRN Reason: Spasms Last Admin: 08/06/17 07:52 Dose: 5 mg Diphenhydramine HCl (Benadryl) 25 mg IVPUSH Q4H PRN PRN Reason: Itching Docusate Sodium (Colace) 100 mg PO BID PRN PRN Reason: Constipation Lactated Ringer's (Ringers, Lactated) 1,000 mls @ 125 mls/hr IV ASDIRECTED [facility] Last Admin: 08/06/17 03:39 Dose: 125 mls/hr Levothyroxine Sodium (Synthroid) 100 mcg PO DAILY@729 [facility] Last Admin: 08/06/17 07:36 Dose: 100 mcg Liothyronine Sodium (Cytomel) 25 mcg PO DAILY@729 [facility] Last Admin: 08/06/17 07:36 Dose: 25 mcg Magnesium Hydroxide (Milk Of Magnesia) 30 ml PO BID PRN PRN Reason: Constipation Last Admin: 08/06/17 07:52 Dose: 30 ml Melatonin (Melatonin) 9 mg PO BEDTIME [facility] Last Admin: 08/05/17 20:12 Dose: 9 mg Memantine (Namenda) 10 mg PO DAILY [facility] Last Admin: 08/06/17 08:13 Dose: 10 mg Metoprolol Tartrate (Lopressor) 25 mg PO DAILY [facility] Last Admin: 08/06/17 08:12 Dose: 25 mg Morphine Sulfate (Morphine) 2 mg IVPUSH Q2H PRN PRN Reason: Pain Last Admin: 08/05/17 00:43 Dose: 2 mg Naloxone HCl (Narcan) 0.1 mg IVPUSH ONETIME PRN PRN Reason: Oversedation Scopolamine Patch (Chek) 1 each TOP DAILY [facility] Last Admin: 08/06/17 08:13 Dose: Not Given Ondansetron HCl (Zofran) 8 mg IVPUSH Q4H PRN PRN Reason: Nausea/Vomiting Oxycodone/Acetaminophen (Percocet 325-5 Mg) 2 tab PO Q4H PRN PRN Reason: Pain Last Admin: 08/06/17 10:21 Dose: 2 tab Pantoprazole Sodium (Protonix) 40 mg PO ACBREAKFAST [facility] Last Admin: 08/06/17 07:36 Dose: 40 mg Scopolamine (Transderm-Scop) 1.5 mg TOP Q72H [facility] Stop: 08/07/17 06:00 Last Admin: 08/04/17 08:19 Dose: 1.5 mg Senna (Senna) 8.6 mg PO BID PRN PRN Reason: Constipation Sodium Chloride (Saline Flush) 10 ml FLUSH DAILY [facility] Last Admin: 08/06/17 08:14 Dose: Not Given Tramadol HCl (Ultram) 100 mg PO Q6H PRN PRN Reason: Pain Last Admin: 08/06/17 07:51 Dose: 100 mg Zolpidem Tartrate (Ambien) 5 mg PO BEDTIME PRN PRN Reason: Sleep Last Admin: 08/06/17 00:02 Dose: 5 mg Discontinued Medications Ropivacaine 49.25 ml/Ketorolac Tromethamine 30 mg/Epinephrine HCl 0.5 mg/ Clonidine HCl 80 mcg/ Sodium Chloride 48.45 ml 0 ml INJECT ONETIME ONE Stop: 08/04/17 07:31 Last Admin: 08/04/17 10:03 Dose: 100 ml Ephedrine Sulfate (Ephedrine Sulfate) Confirm Administered Dose 50 mg .ROUTE .STK-MED ONE Stop: 08/04/17 09:00 Fentanyl (Sublimaze) Confirm Administered Dose 100 mcg .ROUTE .STK-MED ONE Stop: 08/04/17 07:21 Gabapentin (Neurontin) 300 mg PO ONETIME ONE Stop: 08/04/17 06:46 Last Admin: 08/04/17 08:16 Dose: 300 mg Gentamicin Sulfate (Gentamicin) Confirm Administered Dose 240 mg .ROUTE .STK- MED ONE Stop: 08/04/17 07:13 Last Admin: 08/04/17 09:07 Dose: 240 mg Cefazolin Sodium 2 gm/ Sodium (Chloride) 50 mls @ 100 mls/hr IV ONETIME ONE Stop: 08/04/17 07:59 Last Admin: 08/04/17 08:35 Dose: 100 mls/hr Lactated Ringer's (Ringers, Lactated) 1,000 mls @ 0 mls/hr IV ASDIRECTED [facility] PRN Reason: KVO Last Admin: 08/04/17 18:10 Dose: 30 mls/hr Tranexamic Acid 1,000 mg/ (Sodium Chloride) 60 mls @ 240 mls/hr IV Q3H [facility] Stop: 08/04/17 10:44 Last Admin: 08/04/17 21:31 Dose: Not Given Sodium Chloride (Normal Saline) Confirm Administered Dose 10 mls @ as directed .ROUTE .STK-MED ONE Stop: 08/04/17 09:00 Cefazolin Sodium 2 gm/ Sodium (Chloride) 50 mls @ 100 mls/hr IV Q8H [facility] Stop: 08/05/17 08:29 Last Admin: 08/05/17 08:10 Dose: 100 mls/hr Sodium Chloride (Normal Saline) 500 mls @ 500 mls/hr IV .BOLUS ONE Stop: 08/04/17 16:51 Last Admin: 08/04/17 16:06 Dose: 500 mls/hr Lactated Ringer's (Ringers, Lactated) 1,000 mls @ 250 mls/hr IV ASDIRECTED [facility] Stop: 08/05/17 03:30 Last Admin: 08/04/17 23:53 Dose: 250 mls/hr Ketorolac Tromethamine (Toradol) 15 mg IVPUSH Q8H [facility] Stop: 08/05/17 05:01 Last Admin: 08/05/17 05:44 Dose: 15 mg Midazolam HCl (Versed 1 Mg/Ml) Confirm Administered Dose 2 mg .ROUTE .STK-MED ONE Stop: 08/04/17 07:21 Phenylephrine HCl (Ray-Synephrine) Confirm Administered Dose 10 mg .ROUTE .STK- MED ONE Stop: 08/04/17 09:17 Povidone Iodine (Betadine 10% Soln) Confirm Administered Dose 1 ml .ROUTE .STK- MED ONE Stop: 08/04/17 07:14 Last Admin: 08/04/17 09:45 Dose: 10 ml Propofol (Diprivan 20 Ml) Confirm Administered Dose 200 mg .ROUTE .STK-MED ONE Stop: 08/04/17 07:21 Vancomycin HCl (Vancomycin) Confirm Administered Dose 1 gm .ROUTE .STK-MED ONE Stop: 08/04/17 09:07 Last Admin: 08/04/17 09:30 Dose: 1 gm - Exam Quality Assessment: DVT Prophylaxis General: Alert, Cooperative Lungs: Clear to Auscultation, Normal Respiratory Effort Cardiovascular: Regular Rate, Regular Rhythm, No Murmurs GI/Abdominal Exam: Normal Bowel Sounds, Soft, Non-Tender, No Organomegaly, No Distention Extremities: No Pedal Edema Skin: Warm, Dry Consult PN Assessment/Plan Procedures: Procedures BLOOD TYPING SEROLOGIC ABO (07/16/17) BLOOD TYPING SEROLOGIC RH(D) (07/16/17) CHEST X-RAY 2VW FRONTAL&LATL (03/21/15) COMPLETE CBC AUTOMATED (07/16/17) COMPREHEN METABOLIC PANEL (07/16/17) CULTURE OTHR SPECIMN AEROBIC (07/16/17) ELECTROCARDIOGRAM TRACING (07/16/17) RBC ANTIBODY SCREEN (07/16/17) ROUTINE VENIPUNCTURE (07/16/17) X-RAY EXAM KNEE 4 OR MORE (07/14/17) X-RAY EXAM OF KNEE 1 OR 2 (03/01/15) Problem List Initiated/Reviewed/Updated: Yes Plan: ASSESSMENT AND RECOMMENDATIONS STATUS POST LEFT TOTAL KNEE ARTHROPLASTY-stable since surgery yesterday -Postoperative cares per Dr. Montes -Plan for discharge to [facility] a[facility] DEMENTIA -Continue outpatient medical therapy -Melatonin 9 mg by mouth daily at bedtime while hospitalized HYPERTENSION-blood pressure stable we'll continue to monitor -Continue outpatient medical regimen, adjust as needed during hospitalization
[2017-08-06] MEDS: Melatonin 3 MG Tab PO SCH (20:03)
[2017-08-07] MEDS: Acetaminophen/oxyCODONE 325-5 MG Tab PO PRN ×3 (01:11→09:21)
[2017-08-07] MEDS ORDERED: Sodium Phosphate,Monobasic/Sodium Phosphate,Dibasic Enema 133 ML Bottle RECTAL ONE (07:30)
[2017-08-07] MEDS: traMADol 50 MG Tab PO PRN (07:32)
[2017-08-07] MEDS: Diazepam 5 MG Tab PO PRN (07:33)
[2017-08-07] MEDS: Liothyronine 5 MCG Tab PO SCH (07:34)
[2017-08-07] MEDS: Pantoprazole 40 MG Tab.CR PO SCH (07:34)
[2017-08-07] MEDS: Levothyroxine 100 MCG Tab PO SCH (07:34)
[2017-08-07] MEDS: Aspirin 325 MG Tab.EC PO SCH (08:13)
[2017-08-07] MEDS: Metoprolol Tartrate 25 MG Tab PO SCH (08:14)
[2017-08-07] MEDS: Memantine 10 MG Tab PO SCH (08:14)
[2017-08-07] MEDS: Sodium Chloride 0.9% 10 ML Syringe FLUSH SCH (08:15)
[2017-08-07] MEDS: [UNRECOGNIZED DRUG - REMARK] TOP SCH (08:15)
[2017-08-07] MEDS: buPROPion 150 MG Tab.SR PO SCH (08:15)
[2017-08-07 12:00] VITALS: BP 122/70
--- NOTE | 2017-08-19 11:41 | PCM.DCSUM1 ---
Discharge Summary - Hospital Course Free Text/Narrative:: Destiny is a pleasant 72 year old female who is status pod 3 of a left total knee replacement. She is doing well. She had a fall where she lowered herself to the ground the night before but is otherwise doing well. She is ambulating with a walker. Her pain is under control with oral pain medication. - Discharge Data Discharge Date: 08/07/17 Discharge Disposition: DC/Tfer to SNF 03 Condition: Good - Patient Summary/Data Consults: Consultations 08/04/17 10:27 Consult to Physician [CONS] Routine Consulting Provider: Morgan Davis Call Completed to Consulting Physician: Yes OT Evaluation and Treatment [CONS] Routine Please Evaluate and Treat. OT Reason for Consult: Strengthening This query below is only for informational purposes and is not editable. PT Evaluation and Treatment [CONS] Routine Please Evaluate and Treat. PT Reason for Consult: Strengthening This query below is only for informational purposes and is not editable. - Patient Instructions Diet: Usual Diet as Tolerated Activity: Apply Ice, As Tolerated Driving: Do Not Drive Showering/Bathing: May Shower, No Tub Bathing/Swimming Wound/Incision Care: Keep Operative Site/Wound Site Clean and Dry, Change Dressing Daily Notify Provider of: Fever, Increased Pain, Swelling and Redness, Drainage, Nausea and/or Vomiting - Discharge Plan Prescriptions/Med Rec: Acetaminophen/oxyCODONE [Percocet 325-5 MG] 1 tab PO Q4H PRN #90 tablet PRN Reason: Pain Aspirin [Ecotrin] 325 mg PO DAILY #30 tab.ec Home Medications: Home Meds Alendronate [Fosamax] 1 tab PO WEEKLY 07/14/17 [History] Esomeprazole Magnesium [Nexium] 20 mg PO DAILY 07/14/17 [History] Furosemide 40 mg PO DAILY 07/14/17 [History] Levothyroxine [Synthroid] 100 mcg PO DAILY 07/14/17 [History] Liothyronine Sodium 1 tab PO DAILY 07/14/17 [History] Memantine [Namenda] 1 tab PO DAILY 07/14/17 [History] Metoprolol Tartrate 1 tab PO DAILY 07/14/17 [History] Naproxen 1 tab PO BID 07/14/17 [History] buPROPion HCl [Wellbutrin SR] 150 mg PO BID 07/14/17 [History] Acetaminophen/oxyCODONE [Percocet 325-5 MG] 1 tab PO Q4H PRN #90 tablet [Rx] Aspirin [Ecotrin] 325 mg PO DAILY #30 tab.ec 08/07/17 [Rx] Other Amb Orders: PT Evaluation and Treatment [CONS] Location: Determined By Patient Patient Handouts: Preventing Constipation After Surgery - Discharge Summary/Plan Comment DC Time >30 min.: Yes - General Info Functional Status: Reports: Pain Controlled, Tolerating Diet, Ambulating, Urinating - Review of Systems General: Reports: No Symptoms Musculoskeletal: Reports: Joint Pain Neurological: Reports: No Symptoms Psychiatric: Reports: No Symptoms - Patient Data Vitals - Most Recent: Last Vital Signs Temp 36.3 C 08/07/17 11:00 Pulse 85 08/07/17 11:00 Resp 18 08/07/17 11:00 BP 122/70 08/07/17 11:00 Pulse Ox 94 L 08/07/17 11:00 Weight - Most Recent: 219 lb Med Orders - Current: Current Medications Discontinued Medications Al Hydroxide/Mg Hydroxide (Mag-Al Plus) 30 ml PO Q4H PRN PRN Reason: Constipation Aspirin (Ecotrin) 325 mg PO DAILY [facility] Last Admin: 08/07/17 08:13 Dose: 325 mg Bisacodyl (Dulcolax) 10 mg PO DAILY PRN PRN Reason: Constipation Last Admin: 08/06/17 20:03 Dose: 10 mg Bupropion HCl (Wellbutrin Sr) 150 mg PO BID [facility] Last Admin: 08/07/17 08:15 Dose: 150 mg Ropivacaine 49.25 ml/Ketorolac Tromethamine 30 mg/Epinephrine HCl 0.5 mg/ Clonidine HCl 80 mcg/ Sodium Chloride 48.45 ml 0 ml INJECT ONETIME ONE Stop: 08/04/17 07:31 Last Admin: 08/04/17 10:03 Dose: 100 ml Diazepam (Valium.) 5 mg PO Q6H PRN PRN Reason: Spasms Last Admin: 08/07/17 07:33 Dose: 5 mg Diphenhydramine HCl (Benadryl) 25 mg IVPUSH Q4H PRN PRN Reason: Itching Docusate Sodium (Colace) 100 mg PO BID PRN PRN Reason: Constipation Last Admin: 08/06/17 20:03 Dose: 100 mg Ephedrine Sulfate (Ephedrine Sulfate) Confirm Administered Dose 50 mg .ROUTE .K-MED ONE Stop: 08/04/17 09:00 Fentanyl (Sublimaze) Confirm Administered Dose 100 mcg .ROUTE .STK-MED ONE Stop: 08/04/17 07:21 Gabapentin (Neurontin) 300 mg PO ONETIME ONE Stop: 08/04/17 06:46 Last Admin: 08/04/17 08:16 Dose: 300 mg Gentamicin Sulfate (Gentamicin) Confirm Administered Dose 240 mg .ROUTE .[facility]- MED ONE Stop: 08/04/17 07:13 Last Admin: 08/04/17 09:07 Dose: 240 mg Cefazolin Sodium 2 gm/ Sodium (Chloride) 50 mls @ 100 mls/hr IV ONETIME ONE Stop: 08/04/17 07:59 Last Admin: 08/04/17 08:35 Dose: 100 mls/hr Lactated Ringer's (Ringers, Lactated) 1,000 mls @ 0 mls/hr IV ASDIRECTED [facility] PRN Reason: KVO Last Admin: 08/04/17 18:10 Dose: 30 mls/hr Tranexamic Acid 1,000 mg/ (Sodium Chloride) 60 mls @ 240 mls/hr IV Q3H [facility] Stop: 08/04/17 10:44 Last Admin: 08/04/17 21:31 Dose: Not Given Sodium Chloride (Normal Saline) Confirm Administered Dose 10 mls @ as directed .ROUTE .STK-MED ONE Stop: 08/04/17 09:00 Cefazolin Sodium 2 gm/ Sodium (Chloride) 50 mls @ 100 mls/hr IV Q8H [facility] Stop: 08/05/17 08:29 Last Admin: 08/05/17 08:10 Dose: 100 mls/hr Sodium Chloride (Normal Saline) 500 mls @ 500 mls/hr IV .BOLUS ONE Stop: 08/04/17 16:51 Last Admin: 08/04/17 16:06 Dose: 500 mls/hr Lactated Ringer's (Ringers, Lactated) 1,000 mls @ 125 mls/hr IV ASDIRECTED [facility] Last Admin: 08/06/17 03:39 Dose: 125 mls/hr Lactated Ringer's (Ringers, Lactated) 1,000 mls @ 250 mls/hr IV ASDIRECTED [facility] Stop: 08/05/17 03:30 Last Admin: 08/04/17 23:53 Dose: 250 mls/hr Ketorolac Tromethamine (Toradol) 15 mg IVPUSH Q8H [facility] Stop: 08/05/17 05:01 Last Admin: 08/05/17 05:44 Dose: 15 mg Levothyroxine Sodium (Synthroid) 100 mcg PO DAILY@30 [facility] Last Admin: 08/07/17 07:34 Dose: 100 mcg Liothyronine Sodium (Cytomel) 25 mcg PO DAILY@30 [facility] Last Admin: 08/07/17 07:34 Dose: 25 mcg Magnesium Hydroxide (Milk Of Magnesia) 30 ml PO BID PRN PRN Reason: Constipation Last Admin: 08/06/17 20:03 Dose: 30 ml Melatonin (Melatonin) 9 mg PO BEDTIME [facility] Last Admin: 08/06/17 20:03 Dose: 9 mg Memantine (Namenda) 10 mg PO DAILY [facility] Last Admin: 08/07/17 08:14 Dose: 10 mg Metoprolol Tartrate (Lopressor) 25 mg PO DAILY [facility] Last Admin: 08/07/17 08:14 Dose: 25 mg Midazolam HCl (Versed 1 Mg/Ml) Confirm Administered Dose 2 mg .ROUTE .STK-MED ONE Stop: 08/04/17 07:21 Morphine Sulfate (Morphine) 2 mg IVPUSH Q2H PRN PRN Reason: Pain Last Admin: 08/05/17 00:43 Dose: 2 mg Naloxone HCl (Narcan) 0.1 mg IVPUSH ONETIME PRN PRN Reason: Oversedation Scopolamine Patch (Chek) 1 each TOP DAILY [facility] Last Admin: 08/07/17 08:15 Dose: Not Given Ondansetron HCl (Zofran) 8 mg IVPUSH Q4H PRN PRN Reason: Nausea/Vomiting Oxycodone/Acetaminophen (Percocet 325-5 Mg) 2 tab PO Q4H PRN PRN Reason: Pain Last Admin: 08/07/17 09:21 Dose: 2 tab Pantoprazole Sodium (Protonix) 40 mg PO ACBREAKFAST [facility] Last Admin: 08/07/17 07:34 Dose: 40 mg Phenylephrine HCl (Ray-Synephrine) Confirm Administered Dose 10 mg .ROUTE .STK- MED ONE Stop: 08/04/17 09:17 Povidone Iodine (Betadine 10% Soln) Confirm Administered Dose 1 ml .ROUTE .STK- MED ONE Stop: 08/04/17 07:14 Last Admin: 08/04/17 09:45 Dose: 10 ml Propofol (Diprivan 20 Ml) Confirm Administered Dose 200 mg .ROUTE .STK-MED ONE Stop: 08/04/17 07:21 Scopolamine (Transderm-Scop) 1.5 mg TOP Q72H [facility] Stop: 08/07/17 06:00 Last Admin: 08/04/17 08:19 Dose: 1.5 mg Senna (Senna) 8.6 mg PO BID PRN PRN Reason: Constipation Sodium Biphosphate/Sodium Phosphate (Fleet Enema) 133 ml RECTAL ONETIME ONE Stop: 08/07/17 07:31 Last Admin: 08/07/17 07:33 Dose: 133 ml Sodium Chloride (Saline Flush) 10 ml FLUSH DAILY [facility] Last Admin: 08/07/17 08:15 Dose: 10 ml Tramadol HCl (Ultram) 100 mg PO Q6H PRN PRN Reason: Pain Last Admin: 08/07/17 07:32 Dose: 100 mg Vancomycin HCl (Vancomycin) Confirm Administered Dose 1 gm .ROUTE .STK-MED ONE Stop: 08/04/17 09:07 Last Admin: 08/04/17 09:30 Dose: 1 gm Zolpidem Tartrate (Ambien) 5 mg PO BEDTIME PRN PRN Reason: Sleep Last Admin: 08/06/17 00:02 Dose: 5 mg - Exam General: Reports: Alert, Oriented Extremities: Normal Inspection, Normal Range of Motion, Non-Tender, Normal Capillary Refill, Pedal Edema, Joint Swelling Skin: Reports: Warm, Dry, Intact Wound/Incisions: Reports: Healing Well, Dressing Dry and Intact, No Drainage Neurological: Reports: No New Focal Deficit, Normal Gait Psy/Mental Status: Reports: Alert *Q Meaningful Use (DIS) - VTE *Q VTE Criteria *Q: - Stroke *Q Stroke Criteria *Q: - AMI *Q AMI Criteria *Q:
== END 2017-08-07 12:03 | DRG 470 ==
LOC: EDSTATUS 07:30 → JP.SDS 07:48 → JP.SDSSCHI 07:48 → JP.MS 10:27
PROVIDERS: ADMIT Orthopaedic Surgery; ATTEND Orthopaedic Surgery
PROC: 0SRD0J9 Replacement of Left Knee Joint with Synthetic Substitute, Cemented, Open Approach (ICD-10-PCS; principal; 2017-08-04)
DX: M17.12 Unilateral primary osteoarthritis, left knee (principal); I10 Essential (primary) hypertension; F17.210 Nicotine dependence, cigarettes, uncomplicated; M54.9 Dorsalgia, unspecified; G89.29 Other chronic pain; F32.9 Major depressive disorder, single episode, unspecified; E03.9 Hypothyroidism, unspecified; H91.90 Unspecified hearing loss, unspecified ear; H54.7 Unspecified visual loss; G30.9 Alzheimer's disease, unspecified; F02.80 Dementia in other diseases classified elsewhere, unspecified severity, without behavioral disturbance, psychotic disturbance, mood disturbance, and anxiety; Z79.82 Long term (current) use of aspirin
CPT/HCPCS: 36415; 73560-26-LT; 73560-LT; 80053; 85025; 86850; 86900; 86901; 94762; 97110-GP; 97116-GP; 97162-GP; 97165-GO; 97530-GP; A9270-GY; C1713; C1776; J0171; J0690; J0735; J1580; J1885; J2250; J2270; J2370; J2704; J2795; J3010; J3370; J7040; J7050; J7120

== ENCOUNTER 2017-12-29 19:05 | Observation (INO) | payer MEDICARE, MEDICAID ==
[2017-12-29] MEDS ORDERED: Acetaminophen 500 MG Tab PO ONE (20:08)
--- NOTE | 2017-12-29 20:14 | EDM.PDOC ---
ED HPI GENERAL MEDICAL PROBLEM - General Chief Complaint: Neurological Problem Stated Complaint: FALL Time Seen by Provider: 12/29/17 20:00 Source of Information: Reports: Patient, Old Records, Other (acute care nursing assistant) History Limitations: Reports: Other (patient has dementia) - History of Present Illness INITIAL COMMENTS - FREE TEXT/NARRATIVE: 72 yo female fell earlier today and was found on the floor. It took 2 to get her into a wheelchair and then on to the ER. Lives alone. Has surgery a few mos ago for a knee replacement. Walks with a walker. Has been falling more at home recently. 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 Has not been acutely ill recently. 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: Reports: Other (see below) (none) - Related Data Allergies Allergy/AdvReac Type Severity Reaction Status Date / Time No Known Allergies Allergy Verified 03/01/15 16:40 Home Meds: Home Meds Esomeprazole Magnesium [Nexium] 20 mg PO DAILY 07/14/17 [History] Furosemide 40 mg PO DAILY 07/14/17 [History] Levothyroxine [Synthroid] 100 mcg PO DAILY 07/14/17 [History] Liothyronine Sodium 1 tab PO DAILY 07/14/17 [History] Memantine [Namenda] 1 tab PO DAILY 07/14/17 [History] Metoprolol Tartrate 1 tab PO DAILY 07/14/17 [History] Naproxen 1 tab PO ASDIRECTED PRN 07/14/17 [History] buPROPion HCl [Wellbutrin SR] 150 mg PO BID 07/14/17 [History] Past Medical History HEENT History: Reports: Cataract, Hard of Hearing, Impaired Vision Cardiovascular History: Reports: Hypertension, SOB on Exertion Respiratory History: Reports: SOB 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: Reports: Musculoskeletal History: Reports: Back Pain, Chronic, Osteoporosis, Other (See Below) Other Musculoskeletal History: LTKA Neurological History: Reports: Alzheimers Disease Psychiatric History: Reports: Dementia, Depression Endocrine/Metabolic History: Reports: Hypothyroidism, Obesity/BMI 30+, Osteoporosis Hematologic History: Reports: Anemia - Infectious Disease History Infectious Disease History: Reports: Mumps - Past Surgical History Cardiovascular Surgical History: Reports: None Respiratory Surgical History: Reports: None GI Surgical History: Reports: None Female Surgical History: Reports: None Endocrine Surgical History: Reports: None Neurological Surgical History: Reports: None Musculoskeletal Surgical History: Reports: Other (See Below) Other Musculoskeletal Surgeries/Procedures:: left foot surgery, ulner nerve left arm, nose surgery Oncologic Surgical History: Reports: None Dermatological Surgical History: Reports: None Social & Family History - Family History HEENT: Reports: Cataract Respiratory: Reports: Other (See Below) Psychiatric: Reports: Depression Oncologic: Reports: Breast, Lymphoma - Tobacco Use Smoking Status *Q: Former Smoker Years of Tobacco use: 50 Packs/Tins Daily: 0.2 Used Tobacco, but Quit: Yes Month Tobacco Last Used: 2016 Second Hand Smoke Exposure: No - Caffeine Use Caffeine Use: Reports: Coffee - Recreational Drug Use Recreational Drug Use: No Drug Use in Last 12 Months: Yes Recreational Drug Type: Reports: Marijuana/Hashish Recreational Drug Use Frequency: Monthly Recreational Drug Last Use: jul ED ROS GENERAL - Review of Systems Review Of Systems: See Below Constitutional: Reports: Weakness (LE's bilaterally ? new) HEENT: Reports: No Symptoms Respiratory: Reports: No Symptoms Cardiovascular: Reports: No Symptoms GI/Abdominal: Reports: No Symptoms : Reports: No Symptoms Musculoskeletal: Reports: Joint Pain (L knee(chronic) and R knee(acute). ) Skin: Reports: No Symptoms Neurological: Reports: No Symptoms, Other (dementia) ED EXAM, NEURO - Physical Exam Exam: See Below Exam Limited By: No Limitations General Appearance: Alert, WD/WN, No Apparent Distress, Obese Eye Exam: Bilateral Eye: Normal Inspection Ears: Normal External Exam, Normal Canal, Hearing Grossly Normal, Normal TMs Nose: Normal Inspection, Normal Mucosa, No Blood Throat/Mouth: Normal Inspection, Normal Lips, Normal Oropharynx, Normal Voice, No Airway Compromise Head Exam: Atraumatic, Normocephalic Neck: Normal Inspection, Supple Respiratory/Chest: No Respiratory Distress, Lungs Clear, Normal Breath Sounds, No Accessory Muscle Use Cardiovascular: Regular Rate, Rhythm, No Edema GI/Abdominal: Normal Bowel Sounds, Soft, Non-Tender Neurological: Alert, Normal Mood/Affect, CN II-XII Intact, No Motor/Sensory Deficits, Oriented x 3 Back Exam: Normal Inspection. No: CVA Tenderness (R), CVA Tenderness (L) Extremities: Other (R lateral ankle puffiness(? new), mild pain with movement of that ankle. L knee mild pain with flexion/extension-chronic, no swelling.) Psychiatric: Normal Affect, Normal Mood Skin Exam: Warm, Dry, Intact, Normal Color, No Rash Course - Vital Signs Text/Narrative:: Not able to walk, ? primarily due to bilateral ankle pain, even with a walker. Last Recorded V/S: Last Vital Signs Temp 36.8 C 12/29/17 19:56 Pulse 93 12/29/17 19:56 Resp 15 12/29/17 19:56 BP 116/66 12/29/17 19:56 Pulse Ox 98 12/29/17 19:56 - Orders/Labs/Meds Orders: Active Orders 24 hr Category Date Time Status Ankle Min 3V Lt [CR] Stat Exams 12/29/17 21:14 Taken Ankle Min 3V Rt [CR] Stat Exams 12/29/17 20:08 Taken Labs: Laboratory Tests 12/29/17 12/29/17 Range/Units 20:21 20:21 WBC 11.4 H (4.5-11.0) K/uL RBC 4.57 (3.30-5.50) M/uL Hgb 13.2 D (12.0-15.0) g/dL Hct 42.3 (36.0-48.0) % MCV 93 (80-98) fL MCH 29 (27-31) pg MCHC 31 L (32-36) % Plt Count 230 (150-400) K/uL Sodium 141 (140-148) mmol/L Potassium 4.3 (3.6-5.2) mmol/L Chloride 103 (100-108) mmol/L Carbon Dioxide 30 (21-32) mmol/L Anion Gap 8.5 (5.0-14.0) mmol/L BUN 15 D (7-18) mg/dL Creatinine 0.7 (0.6-1.0) mg/dL Est Cr Clr Drug Dosing 58.30 mL/min Estimated GFR (MDRD) > 60 (>60) Glucose 114 H (74-106) mg/dL Calcium 9.3 (8.5-10.1) mg/dL Troponin I < 0.017 (0.000-0.056) ng/mL Meds: Medications Discontinued Medications Generic Name Dose Route Start Last Admin Trade Name Freq PRN Reason Stop Dose Admin Acetaminophen 1,000 mg 12/29/17 20:08 12/29/17 21:01 Tylenol Extra Strength PO 12/29/17 20:09 1,000 mg ONETIME ONE Administration - Radiology Interpretation Free Text/Narrative:: R ankle X-ray-soft tissue swelling. No def'n acute fx's. L ankle [id number] Departure - Departure Time of Disposition: 22:00 Disposition: Refer to Observation Clinical Impression: Inability to ambulate due to multiple joints Dementia Qualifiers: Dementia type: unspecified type Dementia behavioral disturbance: without behavioral disturbance Qualified Code(s): F03.90 - Unspecified dementia without behavioral disturbance - Discharge Information Referrals: Sin Adorno Sr, MD [Primary Care Provider] - Forms: ED Department Discharge - My Orders Last 24 Hours: My Active Orders 12/29/17 20:08 Ankle Min 3V Rt [CR] Stat 12/29/17 21:14 Ankle Min 3V Lt [CR] Stat - Assessment/Plan Last 24 Hours: My Active Orders 12/29/17 20:08 Ankle Min 3V Rt [CR] Stat 12/29/17 21:14 Ankle Min 3V Lt [CR] Stat
[2017-12-29] MEDS ORDERED: NAPROXEN PO PRN (22:07)
[2017-12-30] MEDS ORDERED: traMADol 50 MG Tab PO ONE (03:09)
[2017-12-30] MEDS ORDERED: Naproxen 250 MG Tab PO PRN (04:00)
[2017-12-30] MEDS ORDERED: Liothyronine 5 MCG Tab PO SCH (07:30)
[2017-12-30] MEDS ORDERED: Levothyroxine 100 MCG Tab PO SCH (07:30)
--- NOTE | 2017-12-30 08:00 | PCM.HP ---
H&P History of Present Illness - General Date of Service: 12/30/17 Admit Problem/Dx: Admission Diagnosis/Problem Admission Diagnosis/Problem Weakness Source of Information: Patient, EMS - History of Present Illness Initial Comments - Free Text/Narative: Destiny fell earlier today and was unable to get up without help. She called her daughter who helped her up from the floor and brought her in and an admission was advised. She said her right knee gave out and she fell. Xj-ray was done of both ankles and no fx was seen but did show arthritis. She says she is unable to go home and wants to go to the senior living in [place]. - Onset of Symptoms: Reports: Gradual Bilateral Feet Pain Score (Numeric/FACES): 4 - Related Data Allergies/Adverse Reactions: Allergies Allergy/AdvReac Type Severity Reaction Status Date / Time No Known Allergies Allergy Verified 03/01/15 16:40 Home Medications: Home Meds Esomeprazole Magnesium [Nexium] 20 mg PO DAILY 07/14/17 [History] Furosemide 40 mg PO DAILY 07/14/17 [History] Levothyroxine [Synthroid] 100 mcg PO DAILY 07/14/17 [History] Liothyronine Sodium 1 tab PO DAILY 07/14/17 [History] Memantine [Namenda] 1 tab PO DAILY 07/14/17 [History] Metoprolol Tartrate 1 tab PO DAILY 07/14/17 [History] Naproxen 1 tab PO ASDIRECTED PRN 07/14/17 [History] buPROPion HCl [Wellbutrin SR] 150 mg PO BID 07/14/17 [History] Past Medical History HEENT History: Reports: Cataract, Hard of Hearing, Impaired Vision Cardiovascular History: Reports: Hypertension, SOB on Exertion Respiratory History: Reports: SOB Gastrointestinal History: Reports: GERD 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: Musculoskeletal History: Reports: Back Pain, Chronic, Osteoporosis, Other (See Below) Other Musculoskeletal History: LTKA Neurological History: Reports: Alzheimers Disease Psychiatric History: Reports: Dementia, Depression Endocrine/Metabolic History: Reports: Hypothyroidism, Obesity/BMI 30+, Osteoporosis Hematologic History: Reports: Anemia - Infectious Disease History Infectious Disease History: Reports: Mumps - Past Surgical History Cardiovascular Surgical History: Reports: None Respiratory Surgical History: Reports: None GI Surgical History: Reports: None Female Surgical History: Reports: None Endocrine Surgical History: Reports: None Neurological Surgical History: Reports: None Musculoskeletal Surgical History: Reports: Other (See Below) Other Musculoskeletal Surgeries/Procedures:: left foot surgery, ulner nerve left arm, nose surgery Oncologic Surgical History: Reports: None Dermatological Surgical History: Reports: None Social & Family History - Family History HEENT: Reports: Cataract Respiratory: Reports: Other (See Below) Psychiatric: Reports: Depression Oncologic: Reports: Breast, Lymphoma - Tobacco Use Smoking Status *Q: Former Smoker Years of Tobacco use: 50 Packs/Tins Daily: 0.2 Used Tobacco, but Quit: Yes Month Tobacco Last Used: 2016 Second Hand Smoke Exposure: No - Caffeine Use Caffeine Use: Reports: Coffee, Soda, Tea - Recreational Drug Use Recreational Drug Use: No Drug Use in Last 12 Months: Yes Recreational Drug Type: Reports: Marijuana/Hashish Recreational Drug Use Frequency: Monthly Recreational Drug Last Use: jul H&P Review of Systems - Review of Systems: Review Of Systems: See Below General: Reports: Weakness HEENT: Reports: No Symptoms Pulmonary: Reports: No Symptoms Cardiovascular: Reports: No Symptoms Gastrointestinal: Reports: No Symptoms Genitourinary: Reports: No Symptoms Musculoskeletal: Reports: Foot Pain, Joint Pain Skin: Reports: No Symptoms Psychiatric: Reports: Other (no orientated to the year or the day of the week.) Hematologic/Lymphatic: Reports: No Symptoms Immunologic: Reports: No Symptoms Exam - Exam Exam: See Below - Vital Signs Vital Signs: Last Vital Signs Temp 99.2 F 12/30/17 07:00 Pulse 93 12/30/17 07:00 Resp 18 12/30/17 07:00 BP 118/55 L 12/30/17 07:00 Pulse Ox 90 L 12/30/17 07:00 Weight: 218 lb 4.122 oz - Exam General: Alert, Oriented, 4 HEENT: PERRLA, Hearing Intact, Mucosa Moist & [place], Nares Patent, Normal Nasal Septum, Posterior Pharynx Clear, Conjunctiva Clear, EOMI, EACs Clear, TMs Clear Neck: Supple, Trachea Midline, 2 Lungs: Clear to Auscultation, Normal Respiratory Effort Cardiovascular: Regular Rate, Regular Rhythm Back Exam: Normal Inspection, Full Range of Motion, NT Extremities: Other (There is pain to palpation of the right ankle with increased temp to palpation.) Peripheral Pulses: 1+: Radial (L), Radial (R) Neurological: Cranial Nerves Intact Neuro Extensive - Mental Status: Alert Neuro Extensive - Motor, Sensory, Reflexes: CN II-XII Intact, Other (unable to ambulate) Psychiatric: Normal Affect - Patient Data Result Diagrams: 12/29/17 20:21 12/29/17 20:21 *Q Meaningful Use (ADM) - VTE *Q VTE Criteria *Q: - Stroke *Q Stroke Criteria *Q: - AMI *Q AMI Criteria *Q: Problem List Initiated/Reviewed/Updated: Yes Orders Last 24hrs: Active Orders 24 hr Category Date Time Status Patient Status [ADT] Routine ADT 12/29/17 22:05 Active Up to Chair [RC] QID Care 12/29/17 22:05 Active Vital Signs [RC] Q4H Care 12/29/17 22:05 Active Regular Diet [DIET] Diet 12/29/17 Breakfast Active Furosemide [Lasix] Med 12/30/17 09:00 Active 40 mg PO DAILY Levothyroxine [Synthroid] Med 12/30/17 07:30 Active 100 mcg PO ACBREAKFAST Liothyronine [Cytomel] Med 12/30/17 07:30 Active 25 mcg PO DAILY Memantine [Namenda] Med 12/30/17 09:00 Active 10 mg PO DAILY Metoprolol Tartrate [Lopressor] Med 12/30/17 09:00 Active 25 mg PO DAILY Naproxen [Naprosyn] Med 12/30/17 04:00 Active 500 mg PO BID PRN Pantoprazole [ProTONIX] Med 12/30/17 09:00 Active 40 mg PO DAILY buPROPion [Wellbutrin SR] Med 12/30/17 09:00 Active 150 mg PO BID Medication Orders Bupropion HCl (Wellbutrin Sr) 150 mg PO BID CASEY Furosemide (Lasix) 40 mg PO DAILY CASEY Levothyroxine Sodium (Synthroid) 100 mcg PO ACBREAKFAST CASEY Liothyronine Sodium (Cytomel) 25 mcg PO DAILY CASEY Memantine (Namenda) 10 mg PO DAILY CASEY Metoprolol Tartrate (Lopressor) 25 mg PO DAILY CASEY Naproxen (Naprosyn) 500 mg PO BID PRN PRN Reason: Pain Last Admin: 12/30/17 07:29 Dose: 500 mg Pantoprazole Sodium (Protonix) 40 mg PO DAILY CASEY Assessment/Plan Comment:: Assessment/Plan: #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 No Fx evident. #2. Dementia: Mild #3. Hypertension: Good control. #4. Obesity: Chironic #5. GERD: On Protonix Labs all reviewed with WBC 11.4 and Hb 13.2
--- NOTE | 2017-12-30 08:13 | PCM.PN ---
- General Info Date of Service: 12/30/17 Functional Status: Reports: Pain Controlled - Review of Systems General: Reports: Weakness HEENT: Reports: No Symptoms Pulmonary: Reports: No Symptoms Cardiovascular: Reports: No Symptoms Gastrointestinal: Reports: No Symptoms Genitourinary: Reports: No Symptoms Musculoskeletal: Reports: Foot Pain, Joint Pain, Joint Swelling Neurological: Reports: Other (Mild memory loss) Psychiatric: Reports: Other (Mild Memory loss) - Patient Data Vitals - Most Recent: Last Vital Signs Temp 99.2 F 12/30/17 07:00 Pulse 93 12/30/17 07:00 Resp 18 12/30/17 07:00 BP 118/55 L 12/30/17 07:00 Pulse Ox 90 L 12/30/17 07:00 Weight - Most Recent: 218 lb 4.122 oz I&O - Last 24 Hours: Intake & Output 12/29/17 12/30/17 12/30/17 22:59 06:59 14:59 Intake Total 500 Output Total 100 400 Balance -100 100 Med Orders - Current: Current Medications Bupropion HCl (Wellbutrin Sr) 150 mg PO BID CASEY Furosemide (Lasix) 40 mg PO DAILY CASEY Levothyroxine Sodium (Synthroid) 100 mcg PO ACBREAKFAST CASEY Liothyronine Sodium (Cytomel) 25 mcg PO DAILY CASEY Memantine (Namenda) 10 mg PO DAILY CASEY Metoprolol Tartrate (Lopressor) 25 mg PO DAILY CASEY Naproxen (Naprosyn) 500 mg PO BID PRN PRN Reason: Pain Last Admin: 12/30/17 07:29 Dose: 500 mg Pantoprazole Sodium (Protonix) 40 mg PO DAILY CASEY Discontinued Medications Acetaminophen (Tylenol Extra Strength) 1,000 mg PO ONETIME ONE Stop: 12/29/17 20:09 Last Admin: 12/29/17 21:01 Dose: 1,000 mg Non-Formulary Medication (Naproxen [Naproxen]) 1 tab PO BID PRN PRN Reason: Pain Tramadol HCl (Ultram) 50 mg PO ONETIME ONE Stop: 12/30/17 03:10 Last Admin: 12/30/17 03:23 Dose: 50 mg - Exam General: Cooperative, Mild Distress HEENT: Pupils Equal, Pupils Reactive, EOMI, Mucous Membr. Moist/[place] Neck: Supple Lungs: Clear to Auscultation, Normal Respiratory Effort Cardiovascular: Regular Rate, Regular Rhythm Extremities: Joint Swelling, Increased Warmth Peripheral Pulses: 1+: Radial (L), Radial (R) Skin: Warm, Dry, Intact - Problem List Review Problem List Initiated/Reviewed/Updated: Yes - My Orders Last 24 Hours: My Active Orders 12/29/17 22:05 Patient Status [ADT] Routine Up to Chair [RC] QID Vital Signs [RC] Q4H 12/29/17 Breakfast Regular Diet [DIET] 12/30/17 04:00 Naproxen [Naprosyn] 500 mg PO BID PRN 12/30/17 07:30 Levothyroxine [Synthroid] 100 mcg PO ACBREAKFAST Liothyronine [Cytomel] 25 mcg PO DAILY 12/30/17 09:00 Furosemide [Lasix] 40 mg PO DAILY Memantine [Namenda] 10 mg PO DAILY Metoprolol Tartrate [Lopressor] 25 mg PO DAILY Pantoprazole [ProTONIX] 40 mg PO DAILY buPROPion [Wellbutrin SR] 150 mg PO BID - Plan Plan:: Assessment/Plan: #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 No Fx evident. #2. Dementia: Mild #3. Hypertension: Good control. #4. Obesity: Chironic #5. GERD: On Protonix Will discharge to the alf when a bed is available. She will need intensive PT to improve her strength.
--- NOTE | 2017-12-30 08:22 | PCM.DCSUM1 ---
Discharge Summary - Hospital Course Brief History: Destiny fell earlier at home and was unable to get up without help. She called her daughter who helped her up from the floor and brought her in and an admission was advised. She said her right knee gave out and she fell. Xj-ray was done of both ankles and no fx was seen but did show arthritis. She says she is unable to go home and wants to go to the [facility] in [place]. - - Discharge Data Discharge Date: 12/30/17 Discharge Disposition: DC/Tfer to [facility] Condition: Fair - Patient Instructions Diet: Heart Healthy Diet, Weight Loss Diet Activity, Other: Ambulate with assistance and begin PT,OT Showering/Bathing: March Shower - Discharge Plan Home Medications: Home Meds Esomeprazole Magnesium [Nexium] 20 mg PO DAILY 07/14/17 [History] Furosemide 40 mg PO DAILY 07/14/17 [History] Levothyroxine [Synthroid] 100 mcg PO DAILY 07/14/17 [History] Liothyronine Sodium 1 tab PO DAILY 07/14/17 [History] Memantine [Namenda] 1 tab PO DAILY 07/14/17 [History] Metoprolol Tartrate 1 tab PO DAILY 07/14/17 [History] Naproxen 1 tab PO ASDIRECTED PRN 07/14/17 [History] buPROPion HCl [Wellbutrin SR] 150 mg PO BID 07/14/17 [History] Forms: ED Department Discharge Referrals: Sin Adorno Sr, MD [Primary Care Provider] - - Discharge Summary/Plan Comment Discharge Summary/Plan Comment: Assessment/Plan: #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 No Fx evident. #2. Dementia: Mild #3. Hypertension: Good control. #4. Obesity: Chironic #5. GERD: On Protonix Labs all reviewed with WBC 11.4 and Hb 13.2 - General Info Date of Service: 12/30/17 Functional Status: Reports: Pain Controlled - Review of Systems General: Reports: Weakness HEENT: Reports: No Symptoms Pulmonary: Reports: No Symptoms Cardiovascular: Reports: No Symptoms Gastrointestinal: Reports: No Symptoms Genitourinary: Reports: No Symptoms Musculoskeletal: Reports: Foot Pain, Joint Pain, Joint Swelling Skin: Reports: No Symptoms Neurological: Reports: No Symptoms Psychiatric: Reports: Other (Mild dementia) - Patient Data Vitals - Most Recent: Last Vital Signs Temp 99.2 F 12/30/17 07:00 Pulse 93 12/30/17 07:00 Resp 18 12/30/17 07:00 BP 118/55 L 12/30/17 07:00 Pulse Ox 90 L 12/30/17 07:00 Weight - Most Recent: 218 lb 4.122 oz I&O - Last 24 hours: Intake & Output 12/29/17 12/30/17 12/30/17 22:59 06:59 14:59 Intake Total 500 Output Total 100 400 Balance -100 100 Med Orders - Current: Current Medications Bupropion HCl (Wellbutrin Sr) 150 mg PO BID CASEY Furosemide (Lasix) 40 mg PO DAILY CASEY Levothyroxine Sodium (Synthroid) 100 mcg PO ACBREAKFAST CASEY Liothyronine Sodium (Cytomel) 25 mcg PO DAILY CASEY Memantine (Namenda) 10 mg PO DAILY CASEY Metoprolol Tartrate (Lopressor) 25 mg PO DAILY CASEY Naproxen (Naprosyn) 500 mg PO BID PRN PRN Reason: Pain Last Admin: 12/30/17 07:29 Dose: 500 mg Pantoprazole Sodium (Protonix) 40 mg PO DAILY CASEY Discontinued Medications Acetaminophen (Tylenol Extra Strength) 1,000 mg PO ONETIME ONE Stop: 12/29/17 20:09 Last Admin: 12/29/17 21:01 Dose: 1,000 mg Non-Formulary Medication (Naproxen [Naproxen]) 1 tab PO BID PRN PRN Reason: Pain Tramadol HCl (Ultram) 50 mg PO ONETIME ONE Stop: 12/30/17 03:10 Last Admin: 12/30/17 03:23 Dose: 50 mg - Exam General: Reports: Cooperative, Mild Distress HEENT: Reports: Pupils Equal, Pupils Reactive, EOMI, Mucous Membr. Moist/[place] Neck: Reports: Supple Lungs: Reports: Clear to Auscultation, Normal Respiratory Effort Cardiovascular: Reports: Regular Rate, Regular Rhythm Extremities: Joint Swelling, Increased Warmth Skin: Reports: Warm, Dry, Intact Neurological: Reports: Other (mild dementia not orientated to the year or the day of the week) *Q Meaningful Use (DIS) - VTE *Q VTE Criteria *Q: - Stroke *Q Stroke Criteria *Q: - AMI *Q AMI Criteria *Q:
--- NOTE | 2017-12-30 08:48 | CR ---
Ankle Min 3V Rt HISTORY: ankle pain FINDINGS: There is soft tissue swelling laterally. Small avulsion fracture tip of the lateral malleol us is of indeterminate acuity. Recommend clinical correlation for point tenderness. Ankle mortise is preserved. Bony structures appear mildly osteopenic. There are small osteophytes anteriorly and poste riorly. IMPRESSION: Lateral soft tissue swelling. Slightly displaced avulsion fracture tip of the lateral mal leolus is of indeterminate acuity. Recommend clinical correlation for point tenderness. Mild degenera tive changes are noted. Osteopenia.
--- NOTE | 2017-12-30 08:49 | CR ---
Ankle Min 3V Lt HISTORY: fall with pain FINDINGS: Bony structures appear mildly osteopenic. No acute fracture or dislocation is identified. T here mild degenerative changes with small anterior and posterior osteophytes. Ankle mortise is preser mirta. IMPRESSION: Lateral soft tissue swelling. Mild degenerative changes. No acute fracture or dislocation is identified.
[2017-12-30] MEDS ORDERED: Furosemide 40 MG Tab PO SCH (09:00)
[2017-12-30] MEDS ORDERED: Memantine 10 MG Tab PO SCH (09:00)
[2017-12-30] MEDS ORDERED: Metoprolol Tartrate 25 MG Tab PO SCH (09:00)
[2017-12-30] MEDS ORDERED: buPROPion 150 MG Tab.SR PO SCH (09:00)
[2017-12-30] MEDS ORDERED: Pantoprazole 40 MG Tab.CR PO SCH (09:00)
[2017-12-30 11:10] VITALS: BP 140/51
== END 2017-12-30 13:35 ==
LOC: JP.ED 19:05 → JP.MS 21:56
PROVIDERS: ADMIT Internal Medicine; ATTEND Internal Medicine
DX: M19.071 Primary osteoarthritis, right ankle and foot (principal); F03.90 Unspecified dementia, unspecified severity, without behavioral disturbance, psychotic disturbance, mood disturbance, and anxiety; I10 Essential (primary) hypertension; E66.9 Obesity, unspecified; K21.9 Gastro-esophageal reflux disease without esophagitis; M81.0 Age-related osteoporosis without current pathological fracture; F32.9 Major depressive disorder, single episode, unspecified; E03.9 Hypothyroidism, unspecified; W19.XXXA Unspecified fall, initial encounter; Z79.899 Other long term (current) drug therapy; Z89.522 Acquired absence of left knee; Z68.30 Body mass index [BMI] 30.0-30.9, adult; Z87.891 Personal history of nicotine dependence
CPT/HCPCS: 36415; 73610; 80048; 84484; 85027; 99284; 99285; A9270; G0378

== ENCOUNTER 2022-01-17 20:48 | Emergency (ER) | payer MEDICARE, MEDICAID ==
[2022-01-17] MEDS ORDERED: Acetaminophen/oxyCODONE 325-5 MG Tab PO ONE (21:11)
[2022-01-17] MEDS ORDERED: Ketorolac 30 MG/ML SDV IM ONE (22:13)
[2022-01-17 22:25] VITALS: BP 204/84; PULSE 70
== END 2022-01-17 23:45 | disposition home or self-care (01) ==
LOC: JP.ED 20:48
DX: S30.0XXA Contusion of lower back and pelvis, initial encounter (principal); M48.36 Traumatic spondylopathy, lumbar region; I10 Essential (primary) hypertension; G30.9 Alzheimer's disease, unspecified; E66.9 Obesity, unspecified; Z68.41 Body mass index [BMI] 40.0-44.9, adult; Z79.899 Other long term (current) drug therapy; Z87.891 Personal history of nicotine dependence; W00.0XXA Fall on same level due to ice and snow, initial encounter
CPT/HCPCS: 36415; 72110; 72220; 80048; 96372; 99283; A9270-GY; J1885